=== PATIENT | female | born 1985 | race Caucasian/White ===

== ENCOUNTER 2022-03-13 13:41 | Emergency (ER) | payer BC, SELFPAY ==
[2022-03-13 14:11] VITALS: BP 137/86; PULSE 103; RESP 18; TEMP 36.3; O2SAT 96; BMI 19.8
--- NOTE | 2022-03-13 14:57 | ED.NAVMDI ---
HPI - Nausea/Vomiting/Diarrhea General Chief complaint: Nausea/Vomiting Stated complaint: Vomiting Time Seen by Provider: 03/13/22 14:40 History of Present Illness HPI Narrative: This 36-year-old female comes in with persistent vomiting with some diarrhea over the past couple days. This became significantly worse last evening. She states that she vomits within a minute or so after taking any kind of liquids. She has diffuse abdominal pain. She also fell 2 or 3 days ago onto her left side. She did hit her head also but does not report any loss of consciousness. She does not have any neurologic deficits but does report a headache. Related Data Home Medications Medication Instructions Recorded Confirmed citalopram 20 mg tablet mg 03/13/22 methylphenidate HCl 36 mg mg PO 03/13/22 tablet,extended release 24 hr tizanidine 4 mg tablet mg 03/13/22 Previous Rx's Medication Instructions Recorded ketorolac 10 mg tablet 10 mg PO TID 5 Days #15 tab 03/13/22 ondansetron HCl 4 mg tablet 4 mg PO Q6H #20 tab 03/13/22 pantoprazole 20 mg tablet,delayed 20 mg PO DAILY #20 tab 03/13/22 release (Protonix) Allergies Allergy/AdvReac Type Severity Reaction Status Date / Time No Known Drug Allergies Allergy Verified 03/13/22 14:10 Review of Systems Status of ROS: Reports: 10 or more systems reviewed and unremarkable except as noted in History and below Narrative: Constitutional: No fevers, no weight gain or loss. Eyes: No discharge. No vision changes. HENT: No congestion, no sore throat, no ear pain. Cardiovascular: No chest pain, no palpitations. Respiratory: No shortness of breath, no wheezes, no cough. Gastrointestinal: Diffuse abdominal pain that sometimes radiates up into her chest. Vomiting and diarrhea with nausea. Genitourinary: No dysuria, no hematuria. Musculoskeletal: Normal range of motion. Skin: No rashes, no pruritis. Neurological: No dizziness, weakness, sensory change, speech change. Endo/Heme/Allergies: No bruising or bleeding. No polydipsia. Pysch: no suicidality, no anxiety, no insomnia. All other systems reviewed and are negative. PFSH PFSH Social History Smoking Status: Current every day smoker What tobacco products do you use: cigarettes Smoking packs per day: 0.3 Smoking cigarettes per day: 6.0 Years smoked: 16 Smoking pack-years: 4.80 Do you use any of these nicotine containing products: None Second hand tobacco smoke exposure: No How often do you have a drink containing alcohol: 4 or more times a week How many standard drinks containing alcohol do you have on a typical day: 1 or 2 How often do you have six or more drinks on one occasion: Weekly AUDIT-C Alcohol total score: 7 Non-prescribed substance use: marijuana (any form) Non-prescribed substance use details: [facility] service: No Exam Narrative: Exam Narrative: Constitutional: Well-developed, well-nourished, no acute distress. HEENT: Normocephalic, atraumatic. Neck: Normal range of motion. Nontender. Supple. Heart: Regular. No murmurs. Normal rate. Intact distal pulses. Lungs: Clear to auscultation. No chest discomfort. No wheezes, rhonchi, or rales. Abdomen: Normal bowel sounds. Diffuse tenderness on the left side and upper abdomen. No obvious rebound tenderness. Genitalia: Deferred. Back: No midline tenderness. Normal range of motion. Extremities: Normal range of motion. No injury. Skin: Intact. No rash. Warm. No erythema or pallor. Neurologic: No altered sensation. No weakness. Alert and oriented. Psychiatric: No suicidality. No anxiety or depression. No insomnia. Nursing notes and vitals signs are reviewed. Const: Vital Signs, click to edit/add: Vital Signs - 24 hr 03/13/22 14:11 03/13/22 16:10 03/13/22 16:59 Temperature 97.3 F L Pulse Rate [Right Pulse Oximeter] 103 H 78 86 Respiratory Rate 18 18 Blood Pressure [Ri ght Upper Arm] 137/86 119/79 114/68 Pulse Oximetry 96 100 100 Course Vital Signs Vital signs: Initial Vital Signs Temperature 97.3 F L 03/13/22 14:11 Temperature Source Temporal Artery Scan 03/13/22 14:11 Pulse Rate 103 H 03/13/22 14:11 Respiratory Rate 18 03/13/22 14:11 Blood Pressure 137/86 03/13/22 14:11 Blood Pressure Mean 103 03/13/22 14:11 Blood Pressure Position Sitting 03/13/22 14:11 Pulse Oximetry 96 03/13/22 14:11 Oxygen Delivery Method 03/13/22 14:11 Vital Signs Temperature 97.3 F L 03/13/22 14:11 Pulse Rate 103 H 03/13/22 14:11 Respiratory Rate 18 03/13/22 14:11 Blood Pressure 137/86 03/13/22 14:11 Pulse Oximetry 96 03/13/22 14:11 Temperature 97.3 F L 03/13/22 14:11 Pulse Rate 86 03/13/22 16:59 Respiratory Rate 18 03/13/22 16:59 Blood Pressure 114/68 03/13/22 16:59 Pulse Oximetry 100 03/13/22 16:59 MDM - Nausea/Vomiting/Diarrhea MDM Narrative Medical decision making narrative: This patient comes in with upper epigastric and left-sided abdominal pain with nausea, vomiting, and diarrhea. She also reports some pain in the left side of her head and on her ear. She indicates that she fell and has a history of falling. Most of this is related to overuse of alcohol. She states that she was drinking heavily over the last month but not so in the last several days. An IV was established where she received a L of normal saline, 4 mg of Zofran, and 30 mg of Toradol. This brought some relief to her symptoms. Later she received a GI cocktail and another dose of Zofran. Meanwhile her lab results returned with mostly reassuring findings. Her liver enzymes are slightly elevated. She is not showing sign of infection. She does not have symptoms typical of an acute abdomen. Her lipase level is in normal range. She does feel better with these treatments and feels okay to return home. She did received prescriptions for Zofran, Toradol, and Protonix. Lab Data Labs: Lab Results 03/13/22 03/13/22 Range/Units 15:05 15:05 WBC 6.66 (4.50-11.00) K/uL RBC 3.87 L (4.00-5.20) m/uL Hgb 14.2 (12.0-16.0) gm/dL Hct 41.2 (33.0-51.0) % MCV 107 H (80-100) fL MCH 37 H (26-34) pg MCHC 35 (32-36) gm/dL RDW Coeff of [place] 13.8 (11.5-15.5) % Plt Count 288 (140-440) K/uL Neut % (Auto) 68.3 (42.0-72.0) % Lymph % (Auto) 21.8 (20-44) % [place] % (Auto) 8.9 (0.0-11.0) % Eos % (Auto) 0.2 (0.0-7.0) % Baso % (Auto) 0.6 (0.0-3.0) % Neut # (Auto) 4.56 (1.7-7.0) K/uL Lymph # (Auto) 1.45 (0.90-2.90) K/uL [place] # (Auto) 0.60 (0.00-0.90) K/UL Eos # (Auto) 0.01 (0.00-0.50) K/uL Baso # (Auto) 0.04 (0.00-0.30) K/uL Abs Immat Gran (auto) 0.01 (0.00-0.30) K/uL Sodium 139 (135-149) mmol/L Potassium 3.3 L (3.6-5.1) mmol/L Chloride 99 (96-114) mmol/L Carbon Dioxide 21 (20-32) mmol/L BUN 2 L (5-24) mg/dL Creatinine 0.5 (0.5-1.5) mg/dL Estimated Creat Clear 157.43 Glucose 94 (60-115) mg/dL Calcium 9.4 (8.4-10.6) mg/dL Total Bilirubin 1.7 H (0.1-1.5) mg/dL Direct Bilirubin 0.7 H (0.0-0.5) mg/dL AST 56 H (12-35) U/L ALT 37 H (4-35) U/L Alkaline Phosphatase 100 (40-150) U/L Total Protein 8.0 (6.0-8.3) g/dL Albumin 5.2 H (3.3-5.0) g/dL Lipase 205 (23-300) U/L Discharge Plan Discharge Clinical Impression: Gastroenteritis Condition: Stable Instructions: Gastroenteritis (ED) Additional Instructions: Take medication as prescribed and needed. Follow up with MD or return if recurrent or worsening symptoms happen. Prescriptions: New ondansetron HCl 4 mg tablet 4 mg PO Q6H Qty: 20 0RF ketorolac 10 mg tablet 10 mg PO TID 5 Days Qty: 15 0RF pantoprazole [Protonix] 20 mg tablet,delayed release (DR/EC) 20 mg PO DAILY Qty: 20 2RF No Action tizanidine 4 mg tablet 0RF citalopram 20 mg tablet 0RF methylphenidate HCl 36 mg tablet extended release 24hr PO 0RF Follow Up/Referrals: Liliya Argueta DO [Primary Care Provider] - Stand Alone Forms: [facility] Info Instructions Procedures Ultrasound Other exam #1: Anatomical areas examined: Upper abdomen Indications: Pain, vomiting. Exam type: focused emergency ultrasound Description/findings: Normal appearing kidneys, liver, aorta, gallbladder. Impression: No acute findings.
[2022-03-13] MEDS: 0.9 % SODIUM CHLORIDE 1000 ml 1,000 ML IV (15:07)
[2022-03-13] MEDS: KETOROLAC 30 MG/ML inj IVP (15:13)
[2022-03-13] MEDS: ONDANSETRON 2 MG/ML inj 4 MG IVP ×2 (15:16→17:31)
[2022-03-13 15:31] LABS: Basophils Absolute Auto 0.04 K/uL (0.00-0.30); Basophils Percent Auto 0.6 % (0.0-3.0); Eosinophils Absolute Auto 0.01 K/uL (0.00-0.50); Eosinophils Percent Auto 0.2 % (0.0-7.0); Hematocrit 41.2 % (33.0-51.0); Hemoglobin* 14.2 gm/dL (12.0-16.0); Immature Granulocytes Abs Auto 0.01 K/uL (0.00-0.30); Lymphocytes Absolute Auto 1.45 K/uL (0.90-2.90); Lymphocytes Percent Auto 21.8 % (20-44); Mean Corpuscular HGB Conc 35 gm/dL (32-36); Mean Corpuscular Hemoglobin 37 pg (26-34); Mean Corpuscular Volume 107 fL (80-100); Monocytes Percent Auto 8.9 % (0.0-11.0); Neutrophils Absolute Auto 4.56 K/uL (1.7-7.0); Neutrophils Percent Auto 68.3 % (42.0-72.0); Platelet Count* 288 K/uL (140-440); RDW Coefficient of Variation % 13.8 % (11.5-15.5); Red Blood Count 3.87 m/uL (4.00-5.20); White Blood Count* 6.66 K/uL (4.50-11.00)
[2022-03-13 15:53] LABS: Slide Review Reflex No
[2022-03-13 16:10] VITALS: BP 119/79; PULSE 78; O2SAT 100
[2022-03-13 16:17] LABS: Albumin* 5.2 g/dL (3.3-5.0); Chloride* 99 mmol/L (96-114); Potassium* 3.3 mmol/L (3.6-5.1); Sodium* 139 mmol/L (135-149)
[2022-03-13 16:19] LABS: Creatinine* 0.5 mg/dL (0.5-1.5); Est. Creatinine Clearance* 157.43; Estimated Glomerular Filt Rate 125.36
[2022-03-13 16:20] LABS: Alanine Aminotransferase* 37 U/L (4-35); Alkaline Phosphatase* 100 U/L (40-150); Aspartate Amino Transferase* 56 U/L (12-35); Bilirubin Direct* 0.7 mg/dL (0.0-0.5); Bilirubin Total* 1.7 mg/dL (0.1-1.5); Blood Urea Nitrogen* 2 mg/dL (5-24); Calcium* 9.4 mg/dL (8.4-10.6); Carbon Dioxide* 21 mmol/L (20-32); Glucose* 94 mg/dL (60-115); Lipase* 205 U/L (23-300)
[2022-03-13] MEDS: GI COCKTAIL (VISC LIDO/ANTACID) 30 ML PO (16:55)
[2022-03-13 16:59] VITALS: BP 114/68; PULSE 86; RESP 18; O2SAT 100
--- NOTE | 2022-03-13 17:14 | ED.NURSE ---
dr blackburn aware that she has been having left ear pain. exam per dr blackburn.
== END 2022-03-13 17:46 | disposition home or self-care (01) ==
PROVIDERS: Emergency Provider Emergency Medicine Emergency Medical Services; PCP Family Medicine
DX: K52.9 Noninfective gastroenteritis and colitis, unspecified (principal)
CPT/HCPCS: 36415; 80048; 80076; 83690; 85025; 96374; 96375; 96376; 99284; 99285; A9270; J1885; J2405; J7030

== ENCOUNTER 2022-09-03 18:44 | Outpatient (CLI) | payer BC, SELFPAY | END 2022-09-03 18:45 | disposition home or self-care (01) | LOC: AMB 09-04 10:24 | PROVIDERS: PCP Family Medicine; Visit Provider Family Medicine | DX: F10.129 Alcohol abuse with intoxication, unspecified (principal) | CPT/HCPCS: A0425; A0429 ==

== ENCOUNTER 2022-09-03 19:20 | Emergency (ER) | payer BC, SELFPAY ==
[2022-09-03 19:30] VITALS: BP 121/78; PULSE 83; RESP 16; TEMP 36.6; O2SAT 99
--- NOTE | 2022-09-03 19:37 | ED_ITS ---
HPI - General Adult General Time Seen by Provider: 19:37 <Katie Alfaro MD - Last Filed: 09/11/22 13:17> Date Seen: 09/03/22 <Katie Alfaro MD - Last Filed: 09/11/22 13:17> Chief complaint: Alcohol/Intoxication <Katie Alfaro MD - Last Filed: 09/11/22 13:17> Stated complaint: ETOH <Katie Alfaro MD - Last Filed: 09/11/22 13:17> Time Seen by Provider: 09/03/22 19:36 <Katie Alfaro MD - Last Filed: 09/11/22 13:17> Source: patient, RN notes reviewed, old records reviewed and police <Katie Alfaro MD - Last Filed: 09/11/22 13:17> Mode of arrival: EMS <Katie Alfaro MD - Last Filed: 09/11/22 13:17> Limitations: no limitations <Katie Alfaro MD - Last Filed: 09/11/22 13:17> History of Present Illness HPI narrative: Ele is a very pleasant 37-year-old female with history of alcohol abuse who comes to the emergency room via EMS after her mother called 911 for worrisome statements. Patient notes that she had been sober for quite some time and has been participating in outpatient therapy at [facility]. In June of this year she started drinking because of increased responsibility with her mother and her mother's friends. She states that her mother broke her hand and there were numerous other elderly people in the area that needed assistance and she seemed to be the 1 who always had to help. She states that she does not drink every day but when she does she goes on ?Benders?. She notes that her drink of choice is vodka. She notes that in the past she has gotten high as a 0.48 but states that tonight she is only a 0.22. She notes that she was frustrated tonight and her mother would not leave her alone. Out of frustration she states ?I just Wanna ? but she is adamant that she does not mean it and just wanted her mom to leave her alone. She states that she is not suicidal and never has been and does not want to . She states that she does not want to go to detox when I offer. She notes that she has a friend and neighbors place that she can go to if she decides not to go back home. Patient notes no recent trauma. She states that she has gone through withdrawal many times in this will likely include feeling sick as well as having diarrhea. She is requesting an Ativan 0.5 mg right now. I think this is reasonable. <Katie Alfaro MD - Last Filed: 09/11/22 13:17> Related Data Home medications: Home Medications Medication Instructions Recorded Confirmed citalopram 20 mg tablet mg 03/13/22 methylphenidate HCl 36 mg mg PO 03/13/22 tablet,extended release 24 hr tizanidine 4 mg tablet mg 03/13/22 Previous Rx's Medication Instructions Recorded ketorolac 10 mg tablet 10 mg PO TID 5 days #15 tabs 03/13/22 ondansetron HCl 4 mg tablet 4 mg PO Q6H #20 tabs 03/13/22 pantoprazole 20 mg tablet,delayed 20 mg PO DAILY #20 tabs 03/13/22 release (Protonix) <Katie Alfaro MD - Last Filed: 09/11/22 13:17> Allergies/adverse reactions: Allergies Allergy/AdvReac Type Severity Reaction Status Date / Time No Known Drug Allergies Allergy Verified 03/13/22 14:10 <Katie Alfaro MD - Last Filed: 09/11/22 13:17> Review of Systems Status of ROS: Reports: 6 or more systems reviewed and unremarkable except as noted in History and below <Katie Alfaro MD - Last Filed: 09/11/22 13:17> Const: Denies: fever or chills <Katie Alfaro MD - Last Filed: 09/11/22 13:17> Eyes: Denies: change in vision <Katie Alfaro MD - Last Filed: 09/11/22 13:17> ENMT: Denies: hoarseness <Katie Alfaro MD - Last Filed: 09/11/22 13:17> Cardio: Denies: chest pain, swelling of feet/ankles or shortness of breath with exertion <Katie Alfaro MD - Last Filed: 09/11/22 13:17> Resp: Denies: shortness of breath or cough <Katie Alfaro MD - Last Filed: 09/11/22 13:17> GI: Denies: abdominal pain, nausea, vomiting or diarrhea <Katie Alfaro MD - Last Filed: 09/11/22 13:17> : Denies: painful urination <Katie Alfaro MD - Last Filed: 09/11/22 13:17> Neuro: Reports: slurred speech; Denies: headache <Katie Alfaro MD - Last Filed: 09/11/22 13:17> Psych: Denies: anxiety, hopelessness, loss of interest or suicidal ideation <Katie Alfaro MD - Last Filed: 09/11/22 13:17> [facility] Social History: Social History Smoking Status: Current every day smoker What tobacco products do you use: cigarettes Smoking packs per day: 0.3 Smoking cigarettes per day: 6.0 Years smoked: 16 Smoking pack-years: 4.80 Do you use any of these nicotine containing products: None Second hand tobacco smoke exposure: No How often do you have a drink containing alcohol: 4 or more times a week How many standard drinks containing alcohol do you have on a typical day: 1 or 2 How often do you have six or more drinks on one occasion: Weekly AUDIT-C Alcohol total score: 7 Non-prescribed substance use: marijuana (any form) Non-prescribed substance use details: [facility] service: No <Katie Alfaro MD - Last Filed: 09/11/22 13:17> Exam Narrative: Exam Narrative: Patient is awake and oriented. Her speech is somewhat slurred but content is appropriate. Eyes are clear and EOM is full. Pupils slightly sluggishly reactive to light. Head is atraumatic normocephalic. Face is symmetrical. Neck is supple. Heart with regular rate and rhythm and lungs are clear. Abdomen soft nontender. Moving all extremities. Lower extremities without edema. No evidence of trauma. <Katie Alfaro MD - Last Filed: 09/11/22 13:17> Const: Vital Signs, click to edit/add: Vital Signs - 24 hr 09/03/22 19:30 Temperature 97.9 F Pulse Rate [Right Pulse Oximeter] 83 Respiratory Rate 16 Blood Pressure [Ri ght Upper Arm] 121/78 Pulse Oximetry 99 Oxygen Delivery Me thod Room Air <Katie Alfaro MD - Last Filed: 09/11/22 13:17> Vital Signs, click to edit/add: Vital Signs - 24 hr 09/03/22 19:30 Temperature 97.9 F Pulse Rate [Right Pulse Oximeter] 83 Respiratory Rate 16 Blood Pressure [Ri ght Upper Arm] 121/78 Pulse Oximetry 99 Oxygen Delivery Me thod Room Air <Joao Munroe MD - Last Filed: 09/04/22 07:16> Documenting provider has reviewed patient's vital signs: yes <Katie Alfaro MD - Last Filed: 09/11/22 13:17> Course Course Hospital Course: Patient brought in by EMS after making a potential suicide statement. After speaking with the patient I do not think that suicide with her intent but she merely was frustrated. She adamantly denies wanting to or kill herself. She does agreed however to speak to our [employer] retail service merchandiser. She also agrees to blood draw in fluids. <Katie Alfaro MD - Last Filed: 09/11/22 13:17> Vital Signs Vital signs: Initial Vital Signs Temperature 97.9 F 09/03/22 19:30 Temperature Source Temporal Artery Scan 09/03/22 19:30 Pulse Rate 83 09/03/22 19:30 Pulse Rhythm 09/03/22 19:30 Respiratory Rate 16 09/03/22 19:30 Blood Pressure 121/78 09/03/22 19:30 Blood Pressure Mean 92 09/03/22 19:30 Blood Pressure Position Semi-Fowlers 09/03/22 19:30 Pulse Oximetry 99 09/03/22 19:30 Oxygen Delivery Method 09/03/22 19:30 Vital Signs Temperature 97.9 F 09/03/22 19:30 Pulse Rate 83 09/03/22 19:30 Respiratory Rate 16 09/03/22 19:30 Blood Pressure 121/78 09/03/22 19:30 Pulse Oximetry 99 09/03/22 19:30 Oxygen Delivery Method 09/03/22 19:30 Temperature 97.0 F L 09/04/22 07:00 Pulse Rate 85 09/04/22 07:00 Respiratory Rate 18 09/04/22 07:00 Blood Pressure 113/74 09/04/22 07:00 Pulse Oximetry 97 09/04/22 07:00 Oxygen Delivery Method 09/04/22 07:00 <Katie Alfaro MD - Last Filed: 09/11/22 13:17> Initial Vital Signs Temperature 97.9 F 09/03/22 19:30 Temperature Source Temporal Artery Scan 09/03/22 19:30 Pulse Rate 83 09/03/22 19:30 Pulse Rhythm 09/03/22 19:30 Respiratory Rate 16 09/03/22 19:30 Blood Pressure 121/78 09/03/22 19:30 Blood Pressure Mean 92 09/03/22 19:30 Blood Pressure Position Semi-Fowlers 09/03/22 19:30 Pulse Oximetry 99 09/03/22 19:30 Oxygen Delivery Method 09/03/22 19:30 Vital Signs Temperature 97.9 F 09/03/22 19:30 Pulse Rate 83 09/03/22 19:30 Respiratory Rate 16 09/03/22 19:30 Blood Pressure 121/78 09/03/22 19:30 Pulse Oximetry 99 09/03/22 19:30 Oxygen Delivery Method 09/03/22 19:30 Temperature 97.0 F L 09/04/22 07:00 Pulse Rate 85 09/04/22 07:00 Respiratory Rate 18 09/04/22 07:00 Blood Pressure 113/74 09/04/22 07:00 Pulse Oximetry 97 09/04/22 07:00 Oxygen Delivery Method 09/04/22 07:00 <Joao Munroe MD - Last Filed: 09/04/22 07:16> Medical Decision Making MDM Narrative Medical decision making narrative: 1. Suicidal statement-it is my belief that this was set out of frustration in that patient does not have true suicidal ideation or it is an immediate threat to self. Ongoing assessment by our [facility]. 2. Alcohol intoxication-blood ETOH pending but on scene 0.229. Patient is given 1 L of normal saline in total and Zofran 4 mg. Patient will receive multivitamin, folic acid, thiamine. Patient declines detox at this time and will follow-up with her outpatient therapy with that which she already has. 3. Disposition-case will be signed out to my partner Dr. Munroe for final disposition. I received Ms. Pompa at changeOf shift. SheRameshs receivedTreatment as delineated above.Blood alcoholLevel here 0.32. I spoke with [employer] impact retail service merchandiser Queenie also Cory and her friend Who emphasized stressful nature ofMom andThat relationship.Ms. Pompa, with regardTo statementsMade tonight, would notBeConsidered threatTo herselfOrAnyoneElse At this time.IDid speak withHer as well.Appears to be cognating normally, speaking fluidly.Is contactingA friend for a ride. - <Katie Alfaro MD - Last Filed: 09/11/22 13:17> 1. Suicidal statement-it is my belief that this was set out of frustration in that patient does not have true suicidal ideation or it is an immediate threat to self. Ongoing assessment by our [employer] health. 2. Alcohol intoxication-blood ETOH pending but on scene 0.229. Patient is given 1 L of normal saline in total and Zofran 4 mg. Patient will receive multivitamin, folic acid, thigh min. Patient declines detox at this time and will follow-up with her outpatient therapy with that which she already has. 3. Disposition-case will be signed out to my partner Dr. Munroe for final di sposition. I received Ms. Pompa at changeOf shift. Brianna receivedTreatment as delineated above.Blood alcoholLevel here 0.32. I spoke with [employer] retail service merchandiser Queenie also Cory and her friend Who emphasized stressful nature ofMom andThat relationship.Ms. Pompa, with regardTo statementsMade tonight, would notBeConsidered threatTo herselfOrAnyoneElse At this time.IDid speak withHer as well.Appears to be cognating normally, speaking fluidly.Is contactingA friend for a ride. -dr <Joao Munroe MD - Last Filed: 09/04/22 07:16> Medical Records Medical records reviewed: Yes I reviewed the patient's medical records <Katie Alfaro MD - Last Filed: 09/11/22 13:17> Lab Data Labs: Lab Results 09/03/22 09/03/22 09/04/22 Range/Units 20:12 20:12 07:00 WBC 6.03 (4.50-11.00) K/uL RBC 3.49 L (4.00-5.20) m/uL Hgb 12.7 (12.0-16.0) gm/dL Hct 36.7 (33.0-51.0) % MCV 105 H (80-100) fL MCH 36 H (26-34) pg MCHC 35 (32-36) gm/dL RDW Coeff of Celso 12.8 (11.5-15.5) % Plt Count 242 (140-440) K/uL Neut % (Auto) 40.8 L (42.0-72.0) % Lymph % (Auto) 49.3 H (20-44) % [place] % (Auto) 8.8 (0.0-11.0) % Eos % (Auto) 0.8 (0.0-7.0) % Baso % (Auto) 0.3 (0.0-3.0) % Neut # (Auto) 2.50 (1.7-7.0) K/uL Lymph # (Auto) 3.00 H (0.90-2.90) K/uL [place] # (Auto) 0.50 (0.00-0.90) K/UL Eos # (Auto) 0.05 (0.00-0.50) K/uL Baso # (Auto) 0.02 (0.00-0.30) K/uL Sodium 146 (135-149) mmol/L Potassium 3.6 (3.6-5.1) mmol/L Chloride 110 (96-114) mmol/L Carbon Dioxide 22 (20-32) mmol/L BUN 12 (5-24) mg/dL Creatinine 0.7 (0.5-1.5) mg/dL Estimated GFR 115 ml/min Glucose 132 H (60-115) mg/dL Calcium 8.1 L (8.4-10.6) mg/dL Magnesium 1.7 (1.5-2.6) mg/dL Total Bilirubin 0.5 (0.1-1.5) mg/dL AST 32 (12-35) U/L ALT 27 (4-35) U/L Alkaline Phosphatase 54 (40-150) U/L Total Protein 6.7 (6.0-8.3) g/dL Albumin 4.3 (3.3-5.0) g/dL Urine Color Yellow (Yellow) Urine Appearance Slightly Cloudy A (Clear) Urine pH 6.0 (5.0-8.5) Ur Specific [place] >= 1.030 (1.000-1.030) Urine Protein Negative (Negative) Urine Glucose (UA) Negative (Negative) Urine Ketones 2+ A (Negative) Urine Blood Trace-intact A (Negative) Urine Nitrite Negative (Negative) Urine Bilirubin Negative (Negative) Urine Urobilinogen 0.2 (0.2-1.0) Ur Leukocyte Esterase Negative (Negative) Urine RBC 0-2 (0-2) Urine WBC 0-2 (0-5) Ur Squamous Epith Cells Few (None-Few) Amorphous Sediment Few A (None) Urine Bacteria Few A (None) Fine Granular Casts Few A (None) Urine Opiates Screen (Negative) Ur Oxycodone Screen (Negative) Urine Methadone Screen (Negative) Ur Propoxyphene Screen (Negative) Ur Barbiturates Screen (Negative) U Tricyclic Antidepress (Negative) Ur Phencyclidine Scrn (Negative) Ur Amphetamines Screen (Negative) U Methamphetamines Scrn (Negative) U Benzodiazepines Scrn (Negative) Urine Cocaine Screen (Negative) U Marijuana (THC) Screen (Negative) Ur Drug Screen Comment Ethyl Alcohol 0.32 H* (0.01-0.03) % 09/04/22 Range/Units 07:00 WBC (4.50-11.00) K/uL RBC (4.00-5.20) m/uL Hgb (12.0-16.0) gm/dL Hct (33.0-51.0) % MCV (80-100) fL MCH (26-34) pg MCHC (32-36) gm/dL RDW Coeff of Celso (11.5-15.5) % Plt Count (140-440) K/uL Neut % (Auto) (42.0-72.0) % Lymph % (Auto) (20-44) % [place] % (Auto) (0.0-11.0) % Eos % (Auto) (0.0-7.0) % Baso % (Auto) (0.0-3.0) % Neut # (Auto) (1.7-7.0) K/uL Lymph # (Auto) (0.90-2.90) K/uL [place] # (Auto) (0.00-0.90) K/UL Eos # (Auto) (0.00-0.50) K/uL Baso # (Auto) (0.00-0.30) K/uL Sodium (135-149) mmol/L Potassium (3.6-5.1) mmol/L Chloride (96-114) mmol/L Carbon Dioxide (20-32) mmol/L BUN (5-24) mg/dL Creatinine (0.5-1.5) mg/dL Estimated GFR ml/min Glucose (60-115) mg/dL Calcium (8.4-10.6) mg/dL Magnesium (1.5-2.6) mg/dL Total Bilirubin (0.1-1.5) mg/dL AST (12-35) U/L ALT (4-35) U/L Alkaline Phosphatase (40-150) U/L Total Protein (6.0-8.3) g/dL Albumin (3.3-5.0) g/dL Urine Color (Yellow) Urine Appearance (Clear) Urine pH (5.0-8.5) Ur Specific [place] (1.000-1.030) Urine Protein (Negative) Urine Glucose (UA) (Negative) Urine Ketones (Negative) Urine Blood (Negative) Urine Nitrite (Negative) Urine Bilirubin (Negative) Urine Urobilinogen (0.2-1.0) Ur Leukocyte Esterase (Negative) Urine RBC (0-2) Urine WBC (0-5) Ur Squamous Epith Cells (None-Few) Amorphous Sediment (None) Urine Bacteria (None) Fine Granular Casts (None) Urine Opiates Screen Negative (Negative) Ur Oxycodone Screen Negative (Negative) Urine Methadone Screen Negative (Negative) Ur Propoxyphene Screen Negative (Negative) Ur Barbiturates Screen Negative (Negative) U Tricyclic Antidepress Negative (Negative) Ur Phencyclidine Scrn Negative (Negative) Ur Amphetamines Screen Negative (Negative) U Methamphetamines Scrn Negative (Negative) U Benzodiazepines Scrn Negative (Negative) Urine Cocaine Screen Negative (Negative) U Marijuana (THC) Screen Negative (Negative) Ur Drug Screen Comment See Note Ethyl Alcohol (0.01-0.03) % <Katie Alfaro MD - Last Filed: 09/11/22 13:17> Lab Results 09/03/22 09/03/22 09/04/22 Range/Units 20:12 20:12 07:00 WBC 6.03 (4.50-11.00) K/uL RBC 3.49 L (4.00-5.20) m/uL Hgb 12.7 (12.0-16.0) gm/dL Hct 36.7 (33.0-51.0) % MCV 105 H (80-100) fL MCH 36 H (26-34) pg MCHC 35 (32-36) gm/dL RDW Coeff of Celso 12.8 (11.5-15.5) % Plt Count 242 (140-440) K/uL Neut % (Auto) 40.8 L (42.0-72.0) % Lymph % (Auto) 49.3 H (20-44) % [place] % (Auto) 8.8 (0.0-11.0) % Eos % (Auto) 0.8 (0.0-7.0) % Baso % (Auto) 0.3 (0.0-3.0) % Neut # (Auto) 2.50 (1.7-7.0) K/uL Lymph # (Auto) 3.00 H (0.90-2.90) K/uL [place] # (Auto) 0.50 (0.00-0.90) K/UL Eos # (Auto) 0.05 (0.00-0.50) K/uL Baso # (Auto) 0.02 (0.00-0.30) K/uL Sodium 146 (135-149) mmol/L Potassium 3.6 (3.6-5.1) mmol/L Chloride 110 (96-114) mmol/L Carbon Dioxide 22 (20-32) mmol/L BUN 12 (5-24) mg/dL Creatinine 0.7 (0.5-1.5) mg/dL Estimated GFR 115 ml/min Glucose 132 H (60-115) mg/dL Calcium 8.1 L (8.4-10.6) mg/dL Magnesium 1.7 (1.5-2.6) mg/dL Total Bilirubin 0.5 (0.1-1.5) mg/dL AST 32 (12-35) U/L ALT 27 (4-35) U/L Alkaline Phosphatase 54 (40-150) U/L Total Protein 6.7 (6.0-8.3) g/dL Albumin 4.3 (3.3-5.0) g/dL Urine Color Yellow (Yellow) Urine Appearance Slightly Cloudy A (Clear) Urine pH 6.0 (5.0-8.5) Ur Specific [place] >= 1.030 (1.000-1.030) Urine Protein Negative (Negative) Urine Glucose (UA) Negative (Negative) Urine Ketones 2+ A (Negative) Urine Blood Trace-intact A (Negative) Urine Nitrite Negative (Negative) Urine Bilirubin Negative (Negative) Urine Urobilinogen 0.2 (0.2-1.0) Ur Leukocyte Esterase Negative (Negative) Urine RBC 0-2 (0-2) Urine WBC 0-2 (0-5) Ur Squamous Epith Cells Few (None-Few) Amorphous Sediment Few A (None) Urine Bacteria Few A (None) Fine Granular Casts Few A (None) Urine Opiates Screen (Negative) Ur Oxycodone Screen (Negative) Urine Methadone Screen (Negative) Ur Propoxyphene Screen (Negative) Ur Barbiturates Screen (Negative) U Tricyclic Antidepress (Negative) Ur Phencyclidine Scrn (Negative) Ur Amphetamines Screen (Negative) U Methamphetamines Scrn (Negative) U Benzodiazepines Scrn (Negative) Urine Cocaine Screen (Negative) U Marijuana (THC) Screen (Negative) Ur Drug Screen Comment Ethyl Alcohol 0.32 H* (0.01-0.03) % 09/04/22 Range/Units 07:00 WBC (4.50-11.00) K/uL RBC (4.00-5.20) m/uL Hgb (12.0-16.0) gm/dL Hct (33.0-51.0) % MCV (80-100) fL MCH (26-34) pg MCHC (32-36) gm/dL RDW Coeff of Celso (11.5-15.5) % Plt Count (140-440) K/uL Neut % (Auto) (42.0-72.0) % Lymph % (Auto) (20-44) % [place] % (Auto) (0.0-11.0) % Eos % (Auto) (0.0-7.0) % Baso % (Auto) (0.0-3.0) % Neut # (Auto) (1.7-7.0) K/uL Lymph # (Auto) (0.90-2.90) K/uL [place] # (Auto) (0.00-0.90) K/UL Eos # (Auto) (0.00-0.50) K/uL Baso # (Auto) (0.00-0.30) K/uL Sodium (135-149) mmol/L Potassium (3.6-5.1) mmol/L Chloride (96-114) mmol/L Carbon Dioxide (20-32) mmol/L BUN (5-24) mg/dL Creatinine (0.5-1.5) mg/dL Estimated GFR ml/min Glucose (60-115) mg/dL Calcium (8.4-10.6) mg/dL Magnesium (1.5-2.6) mg/dL Total Bilirubin (0.1-1.5) mg/dL AST (12-35) U/L ALT (4-35) U/L Alkaline Phosphatase (40-150) U/L Total Protein (6.0-8.3) g/dL Albumin (3.3-5.0) g/dL Urine Color (Yellow) Urine Appearance (Clear) Urine pH (5.0-8.5) Ur Specific [place] (1.000-1.030) Urine Protein (Negative) Urine Glucose (UA) (Negative) Urine Ketones (Negative) Urine Blood (Negative) Urine Nitrite (Negative) Urine Bilirubin (Negative) Urine Urobilinogen (0.2-1.0) Ur Leukocyte Esterase (Negative) Urine RBC (0-2) Urine WBC (0-5) Ur Squamous Epith Cells (None-Few) Amorphous Sediment (None) Urine Bacteria (None) Fine Granular Casts (None) Urine Opiates Screen Negative (Negative) Ur Oxycodone Screen Negative (Negative) Urine Methadone Screen Negative (Negative) Ur Propoxyphene Screen Negative (Negative) Ur Barbiturates Screen Negative (Negative) U Tricyclic Antidepress Negative (Negative) Ur Phencyclidine Scrn Negative (Negative) Ur Amphetamines Screen Negative (Negative) U Methamphetamines Scrn Negative (Negative) U Benzodiazepines Scrn Negative (Negative) Urine Cocaine Screen Negative (Negative) U Marijuana (THC) Screen Negative (Negative) Ur Drug Screen Comment See Note Ethyl Alcohol (0.01-0.03) % <Joao Munroe MD - Last Filed: 09/04/22 07:16> Discharge Plan Discharge Clinical Impression: Alcohol intoxication, Other social stressor <Katie Alfaro MD - Last Filed: 09/11/22 13:17> Patient Disposition: Home, Self-Care <Katie Alfaro MD - Last Filed: 09/11/22 13:17> Condition: Improved <Katie Alfaro MD - Last Filed: 09/11/22 13:17> Additional Instructions: Recommend discontinuing drinking. Please follow-up with your [facility] counselors. Return to the emergency room as needed especially for depression, suicidal thoughts, worsening symptoms. <Katie Alfaro MD - Last Filed: 09/11/22 13:17> Prescriptions: No Action tizanidine 4 mg tablet citalopram 20 mg tablet methylphenidate HCl 36 mg tablet extended release 24hr PO ondansetron HCl 4 mg tablet 4 mg PO Q6H Qty: 20 0RF ketorolac 10 mg tablet 10 mg PO TID 5 Days Qty: 15 0RF pantoprazole [Protonix] 20 mg tablet,delayed release (DR/EC) 20 mg PO DAILY Qty: 20 2RF <Katie Alfaro MD - Last Filed: 09/11/22 13:17> Follow Up/Referrals: Liliya Argueta DO [Primary Care Provider] - <Katie Alfaro MD - Last Filed: 09/11/22 13:17> Stand Alone Forms: MyHealth Info Instructions <Katie Alfaro MD - Last Filed: 09/11/22 13:17>
[2022-09-03] MEDS: ONDANSETRON 2 MG/ML inj 4 MG IVP (20:33)
[2022-09-03] MEDS: LORazepam 0.5 MG TABLET PO (20:33)
[2022-09-03] MEDS: 0.9 % SODIUM CHLORIDE 500 ML 500 ML IV (20:33)
[2022-09-03 20:45] LABS: Basophils Absolute Auto 0.02 K/uL (0.00-0.30); Basophils Percent Auto 0.3 % (0.0-3.0); Eosinophils Absolute Auto 0.05 K/uL (0.00-0.50); Eosinophils Percent Auto 0.8 % (0.0-7.0); Hematocrit 36.7 % (33.0-51.0); Hemoglobin* 12.7 gm/dL (12.0-16.0); Lymphocytes Percent Auto 49.3 % (20-44); Mean Corpuscular HGB Conc 35 gm/dL (32-36); Mean Corpuscular Hemoglobin 36 pg (26-34); Mean Corpuscular Volume 105 fL (80-100); Monocytes Percent Auto 8.8 % (0.0-11.0); Neutrophils Percent Auto 40.8 % (42.0-72.0); Platelet Count* 242 K/uL (140-440); RDW Coefficient of Variation % 12.8 % (11.5-15.5); Red Blood Count 3.49 m/uL (4.00-5.20); White Blood Count* 6.03 K/uL (4.50-11.00)
[2022-09-03 20:50] LABS: Slide Review Reflex No
[2022-09-03 20:57] LABS: Albumin* 4.3 g/dL (3.3-5.0)
[2022-09-03 20:58] LABS: Chloride* 110 mmol/L (96-114); Sodium* 146 mmol/L (135-149)
[2022-09-03 20:59] LABS: Potassium* 3.6 mmol/L (3.6-5.1)
[2022-09-03 21:00] LABS: Bilirubin Total* 0.5 mg/dL (0.1-1.5); Creatinine* 0.7 mg/dL (0.5-1.5); Estimated Glomerular Filt Rate 115 ml/min
[2022-09-03 21:01] LABS: Alanine Aminotransferase* 27 U/L (4-35); Alkaline Phosphatase* 54 U/L (40-150); Aspartate Amino Transferase* 32 U/L (12-35); Blood Urea Nitrogen* 12 mg/dL (5-24); Calcium* 8.1 mg/dL (8.4-10.6); Carbon Dioxide* 22 mmol/L (20-32); Glucose* 132 mg/dL (60-115); Total Protein* 6.7 g/dL (6.0-8.3)
[2022-09-03 21:02] LABS: Magnesium* 1.7 mg/dL (1.5-2.6)
[2022-09-03 21:22] LABS: Ethanol* 0.32 % (0.01-0.03)
[2022-09-03] MEDS: THIAMINE 100 MG TABLET PO (22:15)
--- NOTE | 2022-09-03 22:37 | ED.NURSE ---
SANTANA speaking to pt
[2022-09-04 07:00] VITALS: BP 113/74; PULSE 85; RESP 18; TEMP 36.1; O2SAT 97
[2022-09-04 07:22] LABS: Appearance Urine Slightly Cloudy (Clear); Bilirubin Urine Negative (Negative); Blood Urine Trace-intact (Negative); Color Urine Yellow (Yellow); Glucose Urine Negative (Negative); Ketones Urine 2+ (Negative); Leukocyte Esterase Urine Negative (Negative); Nitrite Urine Negative (Negative); Protein Urine Negative (Negative); Specific Gravity Urine >= 1.030 (1.000-1.030); Urobilinogen Urine 0.2 (0.2-1.0)
[2022-09-04] MEDS: IBUPROFEN 200 MG TABLET 800 MG PO (07:29)
[2022-09-04] MEDS: LORazepam 1 MG TABLET PO (07:29)
[2022-09-04] MEDS: FOLIC ACID 1 MG TABLET PO (07:29)
[2022-09-04] MEDS: MULTIVITAMIN/MINERALS 1 TABLET 1 TAB PO (07:29)
[2022-09-04 07:39] LABS: Amphetamine Screen Urine Negative (Negative); Barbiturate Screen Urine Negative (Negative); Benzodiazepines Screen Urine Negative (Negative); Cannabinoid Screen Urine Negative (Negative); Cocaine Screen Urine Negative (Negative); Methadone Screen Urine Negative (Negative); Methamphetamines Screen Urine Negative (Negative); Opiate Screen Urine Negative (Negative); Oxycodone Screen Urine Negative (Negative); Phencyclidine Screen Urine Negative (Negative); Tricyclic Antidepressant Urine Negative (Negative)
[2022-09-04 07:45] LABS: Amorphous Sediment Urine Few; Bacteria Urine Few; RBC Urine 0-2 (0-2); Squamous Epithelial Cell Urine Few (None-Few); WBC Urine 0-2 (0-5)
[2022-09-04 07:46] LABS: Fine Granular Casts Urine Few
--- NOTE | 2022-09-04 09:12 | ED.NURSE ---
social service came down to talk with patient and is making an appointment for housing then the mother will come and poultry picker the patient.
--- NOTE | 2022-09-04 09:31 | PC.SOCIAL ---
Met with pt. to give resources on housing assistance through the [facility]. Pt. has been living with her mother and her mother is kicking her out. Pt. plan to make an appointment to see someone at the [facility] before discharge so her mother will be willing to pick her up and let her stay with her awhile longer.
[2022-09-04] MEDS: FAMOTIDINE 20 MG TABLET PO (09:38)
--- NOTE | 2022-09-04 09:39 | ED.NURSE ---
patient is wanting a Pepcid for heartburn and stated the mother is coming to diamond picker in a half hour.
--- NOTE | 2022-09-04 10:40 | ED.NURSE ---
patient's mother is here to bean picker machine operator and take home. called the community action and made an appointment for some assistance.
== END 2022-09-04 10:40 | disposition home or self-care (01) ==
PROVIDERS: Emergency Provider Family Medicine; PCP Family Medicine
DX: F10.129 Alcohol abuse with intoxication, unspecified (principal); Y90.8 Blood alcohol level of 240 mg/100 ml or more; F43.9 Reaction to severe stress, unspecified
CPT/HCPCS: 36415; 80053; 80306; 81003; 81015; 82077; 83735; 85025; 87086; 96361; 96374; 99284; A9153; A9270; J2405; J7120

== ENCOUNTER 2022-10-08 08:38 | Outpatient (CLI) | payer BC, SELFPAY | END 2022-10-08 08:39 | disposition home or self-care (01) | PROVIDERS: PCP Family Medicine; Visit Provider Family Medicine | DX: M54.16 Radiculopathy, lumbar region (principal); M51.36 Other intervertebral disc degeneration, lumbar region | CPT/HCPCS: 62323; J0702; Q9966 ==

== ENCOUNTER 2022-11-07 13:55 | Emergency (ER) | payer BC, SELFPAY ==
[2022-11-07 14:02] VITALS: BP 116/73; PULSE 86; RESP 16; TEMP 37; O2SAT 98; BMI 19.8
[2022-11-07 14:27] LABS: Appearance Urine Clear (Clear); Bilirubin Urine Negative (Negative); Blood Urine Negative (Negative); Color Urine Yellow (Yellow); Glucose Urine Negative (Negative); Ketones Urine Negative (Negative); Leukocyte Esterase Urine Negative (Negative); Nitrite Urine Negative (Negative); Protein Urine Negative (Negative); Specific Gravity Urine 1.015 (1.000-1.030); Urobilinogen Urine 0.2 (0.2-1.0)
--- NOTE | 2022-11-07 14:33 | ED_ITS ---
HPI - Abdominal Pain General Chief Complaint: Abdominal Pain Stated Complaint: Lower back/Lower L Abdominal Pain Time Seen by Provider: 11/07/22 14:07 History of Present Illness HPI narrative: Pt is a 37 year old woman who comes in with RLQ and posterior CVA discomfort for the past 24 hours. She also has some mild dysuria. Pt has had no fevers, chills, night sweats, nausea or vomiting. Pt had been in her usual state of health with no other significant symptoms recently. Pt states the pain is mild and dull no other significant symptoms and no rash. Related Data Home Medications Medication Instructions Recorded Confirmed citalopram 20 mg tablet mg 03/13/22 methylphenidate HCl 36 mg mg PO 03/13/22 tablet,extended release 24 hr tizanidine 4 mg tablet mg 03/13/22 Previous Rx's Medication Instructions Recorded ketorolac 10 mg tablet 10 mg PO TID 5 days #15 tabs 03/13/22 ondansetron HCl 4 mg tablet 4 mg PO Q6H #20 tabs 03/13/22 pantoprazole 20 mg tablet,delayed 20 mg PO DAILY #20 tabs 03/13/22 release (Protonix) Allergies Allergy/AdvReac Type Severity Reaction Status Date / Time No Known Drug Allergies Allergy Verified 11/07/22 14:01 Review of Systems Status of ROS Reports: 10 or more systems reviewed and unremarkable except as noted in History and below [facility] Social History Smoking Status: Current every day smoker What tobacco products do you use: cigarettes Smoking packs per day: 0.3 Smoking cigarettes per day: 6.0 Years smoked: 16 Smoking pack-years: 4.80 Do you use any of these nicotine containing products: None Second hand tobacco smoke exposure: No How often do you have a drink containing alcohol: 4 or more times a week How many standard drinks containing alcohol do you have on a typical day: 1 or 2 How often do you have six or more drinks on one occasion: Weekly AUDIT-C Alcohol total score: 7 Non-prescribed substance use: marijuana (any form) Non-prescribed substance use details: [facility] service: No Exam Narrative: Exam Narrative: EXAM GENERAL: Patient appears comfortable and well. EYES: No scleral icterus. THYROID: no thyroid nodules or thyromegaly. LYMPH: No supraclavicular or cervical lymphadenopathy. SKIN: Visible skin seen during exam normal or with benign process only. EXT: No dependent lower extremity pedal edema. HEART: Regular rate and rhythm with no murmurs, rubs, or gallops. LUNGS: Clear to auscultation bilaterally with no crackles or wheezes. ABD: Soft, non tender, non distended. PSYCH: Good eye contact, speech is not pressured. Const: Vital Signs, click to edit/add: Vital Signs - 24 hr 11/07/22 14:02 Temperature 98.6 F Pulse Rate [Pulse Oximeter] 86 Respiratory Rate 16 Blood Pressure [Ri t Upper Arm] 116/73 Pulse Oximetry 98 Oxygen Delivery Me thod Room Air Course Course Hospital Course: Pt seen and examined. Urinalysis, CBC, CMP, Amylase and CT of abd and pelvis ordered. Reevaluation(s) Reevaluation #1: Labs reassuring. CT shows questionable colitis. Time: 15:51 Vital Signs Vital signs: Initial Vital Signs Temperature 98.6 F 11/07/22 14:02 Temperature Source Temporal Artery Scan 11/07/22 14:02 Pulse Rate 86 11/07/22 14:02 Pulse Rhythm 11/07/22 14:02 Pulse Strength 3+ Normal 11/07/22 14:02 Respiratory Rate 16 11/07/22 14:02 Blood Pressure 116/73 11/07/22 14:02 Blood Pressure Mean 87 11/07/22 14:02 Pulse Oximetry 98 11/07/22 14:02 Oxygen Delivery Method 11/07/22 14:02 Vital Signs Temperature 98.6 F 11/07/22 14:02 Pulse Rate 86 11/07/22 14:02 Respiratory Rate 16 11/07/22 14:02 Blood Pressure 116/73 11/07/22 14:02 Pulse Oximetry 98 11/07/22 14:02 Oxygen Delivery Method 11/07/22 14:02 Temperature 98.6 F 11/07/22 14:02 Pulse Rate 86 11/07/22 14:02 Respiratory Rate 16 11/07/22 14:02 Blood Pressure 116/73 11/07/22 14:02 Pulse Oximetry 98 11/07/22 14:02 Oxygen Delivery Method 11/07/22 14:02 MDM - Abdominal Pain MDM Narrative Medical decision making narrative: Pt presents with short term mild abd tenderness. Labs reassuring. Exam and vitals normal. Labs unrevealing. Pt's CT shows mild questionable bowel thickening. This likely represents short term viral irritation given lack of change in bowels or blood in stool will likely resolve with symptomatic care which is what is offered with PCP follow up. Medical Records Attestation: I reviewed the patient's medical records. Lab Data Labs: Lab Results 11/07/22 11/07/22 11/07/22 Range/Units 14:15 14:50 14:50 WBC 9.84 (4.50-11.00) K/uL RBC 3.90 L (4.00-5.20) m/uL Hgb 13.5 (12.0-16.0) gm/dL Hct 40.0 (33.0-51.0) % MCV 103 H (80-100) fL MCH 35 H (26-34) pg MCHC 34 (32-36) gm/dL RDW Coeff of Celso 11.6 (11.5-15.5) % Plt Count 242 (140-440) K/uL Neut % (Auto) 66.7 (42.0-72.0) % Lymph % (Auto) 24.7 (20-44) % [place] % (Auto) 7.2 (0.0-11.0) % Eos % (Auto) 0.8 (0.0-7.0) % Baso % (Auto) 0.5 (0.0-3.0) % Neut # (Auto) 6.56 (1.7-7.0) K/uL Lymph # (Auto) 2.43 (0.90-2.90) K/uL [place] # (Auto) 0.70 (0.00-0.90) K/UL Eos # (Auto) 0.08 (0.00-0.50) K/uL Baso # (Auto) 0.05 (0.00-0.30) K/uL Sodium (135-149) mmol/L Potassium (3.6-5.1) mmol/L Chloride (96-114) mmol/L Carbon Dioxide (20-32) mmol/L BUN (5-24) mg/dL Creatinine (0.5-1.5) mg/dL Estimated Creat Clear Estimated GFR ml/min Glucose (60-115) mg/dL Calcium (8.4-10.6) mg/dL Total Bilirubin (0.1-1.5) mg/dL AST (12-35) U/L ALT (4-35) U/L Alkaline Phosphatase (40-150) U/L Total Protein (6.0-8.3) g/dL Albumin (3.3-5.0) g/dL Amylase (18-89) U/L HCG, Qual Negative (Negative) Urine Color Yellow (Yellow) Urine Appearance Clear (Clear) Urine pH 7.0 (5.0-8.5) Ur Specific [place] 1.015 (1.000-1.030) Urine Protein Negative (Negative) Urine Glucose (UA) Negative (Negative) Urine Ketones Negative (Negative) Urine Blood Negative (Negative) Urine Nitrite Negative (Negative) Urine Bilirubin Negative (Negative) Urine Urobilinogen 0.2 (0.2-1.0) Ur Leukocyte Esterase Negative (Negative) 11/07/22 Range/Units 14:50 WBC (4.50-11.00) K/uL RBC (4.00-5.20) m/uL Hgb (12.0-16.0) gm/dL Hct (33.0-51.0) % MCV (80-100) fL MCH (26-34) pg MCHC (32-36) gm/dL RDW Coeff of Celso (11.5-15.5) % Plt Count (140-440) K/uL Neut % (Auto) (42.0-72.0) % Lymph % (Auto) (20-44) % [place] % (Auto) (0.0-11.0) % Eos % (Auto) (0.0-7.0) % Baso % (Auto) (0.0-3.0) % Neut # (Auto) (1.7-7.0) K/uL Lymph # (Auto) (0.90-2.90) K/uL [place] # (Auto) (0.00-0.90) K/UL Eos # (Auto) (0.00-0.50) K/uL Baso # (Auto) (0.00-0.30) K/uL Sodium 136 (135-149) mmol/L Potassium 4.3 (3.6-5.1) mmol/L Chloride 102 (96-114) mmol/L Carbon Dioxide 29 (20-32) mmol/L BUN 12 (5-24) mg/dL Creatinine 0.6 (0.5-1.5) mg/dL Estimated Creat Clear 129.95 Estimated GFR 119 ml/min Glucose 117 H (60-115) mg/dL Calcium 9.6 (8.4-10.6) mg/dL Total Bilirubin 0.7 (0.1-1.5) mg/dL AST 23 (12-35) U/L ALT 28 (4-35) U/L Alkaline Phosphatase 52 (40-150) U/L Total Protein 7.4 (6.0-8.3) g/dL Albumin 4.6 (3.3-5.0) g/dL Amylase 110 H (18-89) U/L HCG, Qual (Negative) Urine Color (Yellow) Urine Appearance (Clear) Urine pH (5.0-8.5) Ur Specific [place] (1.000-1.030) Urine Protein (Negative) Urine Glucose (UA) (Negative) Urine Ketones (Negative) Urine Blood (Negative) Urine Nitrite (Negative) Urine Bilirubin (Negative) Urine Urobilinogen (0.2-1.0) Ur Leukocyte Esterase (Negative) Discharge Plan Discharge Clinical Impression: Abdominal pain Condition: Stable Instructions: Abdominal Pain (ED) Additional Instructions: Tylenol Motrin Rest Fluids Follow up if symptoms worsen or new symptoms develop. Activity Level: No Restrictions Discharge Diet: Regular Prescriptions: No Action tizanidine 4 mg tablet citalopram 20 mg tablet methylphenidate HCl 36 mg tablet extended release 24hr PO ondansetron HCl 4 mg tablet 4 mg PO Q6H Qty: 20 0RF ketorolac 10 mg tablet 10 mg PO TID 5 Days Qty: 15 0RF pantoprazole [Protonix] 20 mg tablet,delayed release (DR/EC) 20 mg PO DAILY Qty: 20 2RF Follow Up/Referrals: Liliya Argueta DO [Primary Care Provider] - Stand Alone Forms: MyHealth Info Instructions
--- NOTE | 2022-11-07 14:37 | CRLHL7_ITS ---
For Patients: As a result of the Century Cures Act, medical imaging exams and procedure reports are released immediately into your electronic medical record. You may view this report before your referring provider. If you have questions, please contact your health care provider. Indication: Right lower quadrant pain. Technique: Volumetric multidetector CT images of the abdomen and pelvis were obtained after the administration of intravenous contrast. 69 cc Isovue 370 low osmolar intravenous contrast Comparison: None available. Findings: The lung bases are clear. The liver is normal in attenuation without intrahepatic biliary ductal dilatation. The portal vein is patent. The gallbladder is unremarkable without evidence of radiopaque calculus. There is no significant common biliary ductal dilatation or abrupt cut off. The spleen is normal in enhancement and size. The stomach and duodenum are grossly unremarkable. The pancreas is normal in enhancement without significant atrophy. The adrenal glands are unremarkable. The kidneys demonstrate preserved corticomedullary differentiation without evidence of obstructive uropathy. The colon is somewhat decompressed with questionable thickening of the transverse colon, descending and sigmoid colon with minimal distal colonic diverticulosis. There is a mildly low-lying appearance of the cecum. The appendix is unremarkable. There is no significant mesenteric, retroperitoneal, or pelvic sidewall lymph nodes. The aorta is nonaneurysmal. There is no significant atherosclerotic disease appreciated. There is an IUD in satisfactory position. There is no free fluid or free air. The anterior abdominal wall is intact without significant hernias. The lumbar vertebral body heights are grossly maintained in satisfactory alignment without evidence of displaced fracture, lytic or blastic lesion. Impression: Normal appendix. Questionable mild thickening of the transverse and descending colon with distal colonic diverticulosis which may represent colitis changes. No overt pericolonic inflammatory change is identified. No other acute intra-abdominal abnormalities are appreciated. Please note that all CT scans at this facility use dose modulation, iterative reconstruction, and/or weight-based dosing when appropriate to reduce radiation dose to as low as reasonably achievable. Dictated by Олег Casper MD @ 11/07/2022 3:43:10 PM (Electronically Signed)
[2022-11-07 15:02] LABS: HCG Qualitative* Negative (Negative)
[2022-11-07 15:18] LABS: Basophils Absolute Auto 0.05 K/uL (0.00-0.30); Basophils Percent Auto 0.5 % (0.0-3.0); Eosinophils Absolute Auto 0.08 K/uL (0.00-0.50); Eosinophils Percent Auto 0.8 % (0.0-7.0); Hemoglobin* 13.5 gm/dL (12.0-16.0); Immature Granulocytes Abs Auto 0.01 K/uL (0.00-0.30); Immature Granulocytes Pct Auto 0.1 %; Lymphocytes Absolute Auto 2.43 K/uL (0.90-2.90); Lymphocytes Percent Auto 24.7 % (20-44); Mean Corpuscular HGB Conc 34 gm/dL (32-36); Mean Corpuscular Hemoglobin 35 pg (26-34); Mean Corpuscular Volume 103 fL (80-100); Monocytes Percent Auto 7.2 % (0.0-11.0); Neutrophils Absolute Auto 6.56 K/uL (1.7-7.0); Neutrophils Percent Auto 66.7 % (42.0-72.0); Platelet Count* 242 K/uL (140-440); RDW Coefficient of Variation % 11.6 % (11.5-15.5); White Blood Count* 9.84 K/uL (4.50-11.00)
[2022-11-07 15:19] LABS: Albumin* 4.6 g/dL (3.3-5.0)
[2022-11-07 15:20] LABS: Chloride* 102 mmol/L (96-114); Sodium* 136 mmol/L (135-149)
[2022-11-07 15:22] LABS: Amylase* 110 U/L (18-89); Aspartate Amino Transferase* 23 U/L (12-35); Bilirubin Total* 0.7 mg/dL (0.1-1.5); Carbon Dioxide* 29 mmol/L (20-32); Creatinine* 0.6 mg/dL (0.5-1.5); Est. Creatinine Clearance* 129.95; Estimated Glomerular Filt Rate 119 ml/min; Total Protein* 7.4 g/dL (6.0-8.3)
[2022-11-07 15:23] LABS: Alanine Aminotransferase* 28 U/L (4-35); Alkaline Phosphatase* 52 U/L (40-150); Blood Urea Nitrogen* 12 mg/dL (5-24); Calcium* 9.6 mg/dL (8.4-10.6); Glucose* 117 mg/dL (60-115); Potassium* 4.3 mmol/L (3.6-5.1)
[2022-11-07 15:28] LABS: Slide Review Reflex No
== END 2022-11-07 16:03 | disposition home or self-care (01) ==
PROVIDERS: Emergency Provider Internal Medicine; PCP Family Medicine
DX: R10.31 Right lower quadrant pain (principal)
CPT/HCPCS: 36415; 74177; 80053; 81003; 82150; 84703; 85025; 99283; 99284; Q9967

== ENCOUNTER 2024-01-13 10:05 | Outpatient (CLI) | payer BC, SELFPAY ==
--- OUTSIDE RECORDS SUMMARY | 2024-01-13 10:07 | XMS_ITS | Continuity of Care Document ---
Author Name Unknown Organization [facility] Address [address] [place] [address] Phone Care Team Providers Care Sole Seamer Name Role Phone Les PACHECO, PhD, Rafael Unavailable Unavai lable Procedures Procedure Date Office/Outpatient Visit,[facility] 2018 Advance Directives Directive Yes / No Effective Date File Name No Information Encounters Encounter Description Practice Location Reason(s) For Visit Diagnoses Date Provider Providers Copied on Encounter Office/Outpati ent Visit,[facility], [address], [place], [id number], tel:[phone] [facility] - [place] Low back pain Les Hall. [facility], [address] [place] [address], [facility], [place]. tel:[phone] Referring Provider: Zulema Kelly, [address], [address]. tel:[phone] [facility], [address], [place], [id number], tel:[phone] [facility] - [facility] Low back pain Les Hall. [facility], [facility] [address] [place] [address], [address], [place]. tel:[phone] Family History Family Member Type Diagnosis Age At Onset No Information Payers Payer name Insurance type Covered alliance party ID Authoriza tion(s) No Information Social History Type Description Quantity Date Captured Comments Sex Female Smoking Status No Information Vital Signs Date / Time: Height Weight BMI Pulse Rate Blood Pressure Temperature Respiratory Rate Body Surface Area Head Circumference Head Circ. Percentile Wt./Don. Percentile BMI percentile Pulse Ox Inhaled Ox 4:06 PM 70.00 in 71.668 kg (158.00 lbs) 22.6 7 kg/m eter (2) Chief Complaint And Reason For Visit No Information Reason For Referral Reason For Referral No Information History Of Present Illness Encounter Date Complaint History Of Prese nt Illness No Information Functional Status Date Functional Assessmen t No Information Instructions Date Instruction Additional Infor mation No Information Assessments Type Assessment Date assessment Low back pain Patient Care Teams Name Effective Dates (start - stop) Status Members No Information
--- OUTSIDE RECORDS SUMMARY | 2024-01-13 10:08 | XMS_ITS | Clinical Summary ---
Author Name Unknown Organization [facility] Address [place], [place] [address] Care Team Providers Care Director Of Academic Support Name Role Phone Liliya Argueta DO Primary Care Provider [phone] Luigi Damon PhD, LP Unavailable [phone] Allergies No known active allergies Medications Medication Sig Dispensed Refills Start Date End Date Status cyanocobalamin (Vitamin B-12) 1,000 mcg tablet Take 1 Tablet (1,000 mcg) by mouth once daily. 90 Tablet 3 2 Active multivitamins-calc kdk-vaaq-eejlxgea (Multiple Vitamin, Womens) tab tablet Take 1 Tablet by mouth once daily. 0 2 Active citalopram (CELEXA) 10 mg tabletIndications: Anxiety state Take 1 Tablet (10 mg) by mouth every morning. 90 Tablet 3 3 Active cholecalciferol (Vitamin D) 1,000 unit capsule Take 1 Capsule (1,000 units) by mouth once daily. 0 3 Active ondansetron (ZOFRAN ODT) 4 mg disintegrating tabletIndications: Nausea Place 1 Tablet (4 mg) on the tongue every 8 hours if needed for Nausea/Vomitin g. 30 Tablet 3 Active LORazepam (ATIVAN) 0.5 mg tabIndications:Bobby sea,Abdominal pain, epigastric Take 1 Tablet (0.5 mg) by mouth once daily if needed for Anxiety. 4 Tablet 3 Active pantoprazole (PROTONIX) 40 mg delayed-release tabletIndications: Abdominal pain, generalized TAKE ONE TABLET BY MOUTH ONE TIME DAILY 90 Tablet 4 Active medication order composer flaxseed oil probiotic beet powder capsule DGL-fermented rose and willsoni Active tiZANidine (ZANAFLEX) 4 mg tabletIndications: Lumbar disc herniation with radiculopathy take 1 tablet by mouth up to 3 times daily. use mostly at night for muscle relaxer. may make you drowsy. 60 Tablet 4 Active methylphenidate (Concerta) 54 mg extended-release tabletIndications: ADHD, predominantly inattentive type Take 1 Tablet (54 mg) by mouth once daily. 30 Tablet 4 02/01/20 24 Active methylphenidate (Concerta) 54 mg extended-release tabletIndications: ADHD, predominantly inattentive type Take 1 Tablet (54 mg) by mouth once daily. 30 Tablet 4 03/02/20 24 Active methylphenidate (Concerta) 54 mg extended-release tabletIndications: ADHD, predominantly inattentive type Take 1 Tablet (54 mg) by mouth once daily. 30 Tablet 4 Active MAGNESIUM ORAL Take by mouth. Active methylphenidate (Concerta) 54 mg extended-release tabletIndications: ADHD, predominantly inattentive type Take 1 Tablet (54 mg) by mouth once daily. 30 Tablet 4 01/02/20 24 Discontinued(*Me d complete/Regimen complete/Level of care change) methylphenidate (Concerta) 54 mg extended-release tabletIndications: ADHD, predominantly inattentive type Take 1 Tablet (54 mg) by mouth once daily. 30 Tablet 4 01/02/20 24 Discontinued(*Me d complete/Regimen complete/Level of care change) tiZANidine (ZANAFLEX) 4 mg tabletIndications: Lumbar disc herniation with radiculopathy take 1 tablet by mouth up to 3 times daily. use mostly at night for muscle relaxer. may make you drowsy. 60 Tablet 4 12/25/19 24 Discontinued predniSONE (DELTASONE) 20 mg tabletIndications: Neck pain on left side,Left arm pain 2 tabs daily for 3 days, 1 tab daily for 3 days, and 1/2 tab daily for 4 days. 11 Tablet 4 01/05/20 24 Hospital, Clinic, or Other Facility Administered Medication Ordered Dose Route Frequency Start Date End Date Status levonorgestrel intrauterine device (MIRENA) 1 DeviceIndications:Uses contraception 1 Device IU Q 5 YEARS 01/10/2021 Active Active Problems Problem Noted Date Diagnosed Date Bee sting reaction 05/14/2023 Chronic alcohol abuse 05/14/2023 Substance abuse 05/14/2023 Alcoholic intoxication 05/14/2023 Lumbar disc herniation with radiculopathy 2022 Overview: Jun: L4-5 IL LOULOU with phenomenal relief of back and left leg symptoms. January 2021: L4-5 IL LOULOU with phenomenal relief of back and left leg symptoms. 10/08/2022: L4-5 IL LOULOU . 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 Abstinent since Encounters Date Type Department Care Team Description 01/09/2024 10:30 AM CDT Phone Office Visit [facility] [address] [place] [phone] Stacy Nichole, PhD, LP Individual Therapy 01/09/2024 Travel 01/02/2024 2:15 PM CDT Office Visit [facility] [address] [place] [address] Liliya Argueta, DO Physical (38 yr/); Referral (ENT referral- feels like pebble in between ear and jaw-affects eating); bone density (bone density testing-from history ) 01/01/2024 8:15 AM CDT Telemedicine [facility] [address] [place] [phone] Stacy Nichole, PhD, LP Individual Therapy 01/01/2024 Telephone [facility] [address] [place] [address] Liliya Argueta DO Pharmacist Medication Management (Methylphenidate ) 01/01/2024 Travel 12/25/2023 12:35 PM CDT Office Visit [facility] [address] [place] [address] Bashir Carlos MD Musculoskeletal Problem (Recheck chronic low back (LEFT) and LEFT Hip /Discuss getting updated MRI) 12/25/2023 Travel 12/24/2023 Refill [facility] [address] [place] [address] Liliya Argueta DO Refill Request (Tizanidine) 12/03/2023 5:30 PM CDT Telemedicine [facility] [address] [place] [phone] Stacy Nichole, PhD, LP Mental Health Intake; Trmt Plan 12/03/2023 Travel 11/05/2023 Refill [facility] [address] [place] [address] Liliya Argueta DO Refill Request (Tizanidine) 11/03/2023 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 Telemedicine [facility] [address] [place] [address] Liliya Argueta DO Medication Management (ADHD follow up/ discuss adjustment with dose/been sober for a year now- Would like to see Dayanara again/) 11/03/2023 Travel 10/22/2023 Refill [facility] [address] [place] [address] Liliya Argueta DO Refill Request (Methylphenidate Hcl) from Last 3 Months Immunizations Name Administration Dates Next Due Td (Age >=7 Years) 11/04/2018 Tdap 06/22/2008 Family History Medical History Relation Name Comments Hyperlipidemia Father Relation Name Status Comments Father Social History Tobacco Use Types Packs/Day Years Used Date Smoking Tobacco: Light Smoker Cigarettes Last attempted t o quit: 05/14/2019 Smokeless Tobacco: Never Tobacco Cessation:Ready to Q uit: No; Counseling Given: Yes Comments:4 cigs per day Alcohol Use Standard Drinks/Week Comments Not Currently 0 (1 standard drink = 0.6 oz pur e alcohol) been sober for over a year PHQ-2 Answer Date Recorded PHQ-2 TOTAL SCORE 0 01/02/2024 Social Connections Answer Date Recorded Frequency of Communication with Friends and Fami ly 0 05/16/2023 Financial Resource Strain Answer Date R ecorded Difficulty of Paying Living Expenses 3 05/16/2023 Difficulty of Paying Living Expenses Not on file 05/16/2023 Food Insecurity Answer Date Recorded Worried About Running Out of Food in the Last Ye ar 1 05/16/2023 Transportation Needs Answer Date Record ed Lack of Transportation (Medical) 1 05/16/2023 Housing Stability Answer Date Recorded Unable to Pay for Housing in the Last Year 1 05/16/2023 Sex and Gender Information Value Date Recorded Sex Assigned at Not on file Gender Identity Not on file Sexual Orientation Not on file Obstetrics History Last Filed Vital Signs Vital Sign Reading Time Taken Comments Blood Pressure 114/73 01/02/2024 2:24 PM CDT Pulse 84 01/02/2024 2:24 PM CDT Temperature 36.7 ??C (98 ??F) 01/02/2024 2:24 PM CDT Respiratory Rate 16 05/16/2023 2:03 PM CDT Oxygen Saturation 98% 01/02/2024 2:24 PM CDT Inhaled Oxygen Concentration - - Weight 60.8 kg (134 lb) 01/02/2024 2:24 PM CDT Height 179.2 cm (5' 10.55) 01/02/2024 2:24 PM C DT Body Mass Index 18.93 01/02/2024 2:24 PM CDT Plan of Treatment Upcoming Encounters Date Type Department Care Team (Late st Contact Info) Description 01/13/2024 10:40 AM CDT Office Visit [facility] [address] [place] [phone] eDan Gan MD [address] [place] [address] Arrived 01/14/2024 7:30 AM CDT Office Visit [facility] [address] [place] [phone] Stacy Nichole, PhD, LP [address] [place] [address] 01/15/2024 8:15 AM CDT Telemedicine [facility] [address] [place] [phone] Stacy Nichole, PhD, LP [address] [place] [address] 01/15/2024 1:00 PM CDT Ancillary Procedure [facility] [address] [place] [address] 02/06/2024 1:15 PM CDT Office Visit [facility] [address] [place] [phone] Lloyd Tatum MD [address] [place] [address] 02/09/2024 12:35 PM CDT Office Visit [facility] [address] [place] [facility] [place] [address] Bashir Carlos MD [address] [place] [address] Health Maintenance Due Date Last Done Comments Pneumococcal series for age 6-64 (1 of 2 - PCV) 1992 COVID-19 vaccine series (2022-24 season) 2024 Postponed from 05/02/2023 (Patient discretion) Influenza for age 9-49 05/02/2024 BMI (ht and wt on same day) for age 18+ 01/01/2025 01/02/2024, 09/03/2023, 05/08/2022, Additional history exists Depression screening for age 12+ 01/01/2025 01/02/2024, 01/01/2024, 01/01/2024, Additional history exists Tetanus booster 11/04/2028 11/04/2018, 06/02 (Completed outside of [facility]), 06/27/2008 ([facility] Additional history exists Pap test for age 21-65 01/01/2029 4, 11/04/2018, 11/04/2018, Additional history exists Tdap Completed 06/22/2008 Hepatitis C screening for age 18-79 Completed 05/08/2022 HIV for age 15-65 Completed 01/02/2024 Procedures Procedure Name Priority Date/Time Associated Diagnosis Comments AMB EPIDURAL STEROID INJECTION Routine 01/13/2024 8:01 AM CDT Lumbar disc herniation with radiculopathy BASIC METABOLIC PANEL Routine 01/02/2024 3:15 PM CDT Diabetes mellitus screening LIPID PANEL W REFLEX MEASURED LDL Routine 01/02/2024 3:15 PM CDT Lipid screening ANTI HIV 1/2 Routine 01/02/2024 3:15 PM CDT Screening for HIV (human immunodeficiency virus) HPV THIN PREP Routine 01/02/2024 2:30 PM CDT Screening for cervical cancer GC CHLAMYDIA TRACH PROBE Routine 01/02/2024 2:30 PM CDT Screen for STD (sexually transmitted disease) ANTI HCV Routine 05/08/2022 3:22 PM CDT Need for hepatitis C screening test from Last 3 Months or Most Recently Relevant to Health Maintenance Results * LIPID PANEL W REFLEX MEASURED LDL (01/02/2024 3:15 PM CDT) CHOLESTEROL,TOTAL 161 100 - 199 mg/dL 01/02/2024 10:16 PM CDT [facility] Comment: Cholesterol, Total Reference Ranges Desirable <200 mg/dL Borderline 200-239 mg/dL High >=240 mg/dL TRIGLYCERIDES 53 <150 mg/dL 01/02/2024 10:16 PM CDT [facility] HDL CHOLESTEROL 66 >40 mg/dL 10:16 PM CDT [facility] NON-HDL CHOLESTEROL 95 <145 mg/dl 01/02/2024 10:16 PM CDT [facility] CHOL/HDL RATIO 2.44 <4.50 01/02/2024 10:16 PM CDT [facility] LDL CHOLESTEROL 84 <=130 mg/dL 01/02/2024 10:16 PM CDT [facility] VLDL CHOLESTEROL 11 <=30 mg/dL 01/02/2024 10:16 PM CDT [facility] PROVIDER ORDERED STATUS RANDOM 01/02/2024 10:16 PM CDT [facility] Blood BLOOD SPECIMEN / Unknown Venipuncture / Unknown 01/02/2024 3:15 PM CDT 01/02/2024 3:15 PM CDT Liliya Argueta DO CHEMISTRY Performing Organization Address City/[facility]/ZIP Co de Phone Number [facility] [address] [place] [address], [place] * ANTI HIV 1/2 [21746.0] (01/02/2024 3:15 PM CDT) Pathologist [facility] HIV-1/HIV-2 SCREEN Non-Reacti ve Non-Reacti ve 01/02/2024 9:57 PM CDT [facility] Comment:HIV-1 p24 and HIV-1/ HIV-2 Ab Not Detected. Blood BLOOD SPECIMEN / Unknown Venipuncture / Unknown 01/02/2024 3:15 PM CDT 01/02/2024 3:15 PM CDT Liliya Argueta DO SEND OUTS Performing Organization Address City/[facility]/ZIP Co de Phone Number [facility] [address] [place] [address], [place] * (ABNORMAL) BASIC METABOLIC PANEL (01/02/2024 3:15 PM CDT) SODIUM 137 136 - 145 mmol/L 01/02/2024 10:16 PM CDT [facility] POTASSIUM 4.1 3.5 - 5.1 mmol/L 01/02/2024 10:16 PM CDT [facility] CHLORIDE 99 98 - 107 mmol/L 01/02/2024 10:16 PM CDT [facility] CO2,TOTAL 26 22 - 29 mmol/L 01/02/2024 10:16 PM T [facility] ANION GAP 12 5 - 18 01/02/2024 10:16 PM T [facility] GLUCOSE 113(H) 70 - 99 mg/dL 01/02/2024 10:16 PM CDT [facility] CALCIUM 10.0 8.6 - 10.0 mg/dL 01/02/2024 10:16 PM T [facility] BUN 11 6 - 20 mg/dL 01/02/2024 10:16 PM T [facility] CREATININE 0.73 0.50 - 0.90 mg/dL 01/02/2024 10:16 PM T [facility] BUN/CREAT RATIO 15 10 - 20 10:16 PM T [facility] eGFR >90 >90 mL/min/1.7 3m2 01/02/2024 10:16 PM T [facility] Comment:As of 2021, eG FR is calculated by the CKD-EPI creatinine equation without race adjustment. ??eGFR can be influenced by muscle mass, exercise, and diet. ??The reported eGFR is an estimation only and is only applicable if the renal function is stable. Blood BLOOD SPECIMEN / Unknown Venipuncture / Unknown 01/02/2024 3:15 PM CDT 01/02/2024 3:15 PM CDT Liliya Argueta DO CHEMISTRY [facility] [address] [place] [address], * GC & CHLAMYDIA DNA PCR [[id number]] (01/02/2024 2:30 PM CDT) CHLAMYDIA PROBE Negative 3:01 AM CDT [facility] N GONORRHOEAE PROBE Negative 01/03/2024 3:01 AM CDT [facility] Other ENDOCERVICAL CYTOLOGIC MATERIAL / Unknown Non-Blood / Unknown 01/02/2024 2:30 PM CDT 01/02/2024 3:08 PM CDT Liliya Argueta DO MICROBIOLOGY Performing Organization Address City/[facility]/ZIP Co de Phone Number [facility] [address] [place] [address], * HPV HIGH RISK (01/02/2024 2:30 PM CDT) TYPE 16 Negative Negative 01/07/2024 2:03 PM CDT [facility] TYPE 18 Negative Negative 01/07/2024 2:03 PM CDT [facility] OTHER HIGH RISK TYPES Negative Negative 01/07/2024 2:03 PM CDT [facility] Other (Cervical) Non-Blood / Unknown 01/02/2024 2:30 PM CDT 01/05/2024 1:46 PM CDT Narrative [facility] - 01/07/2024 2:03 PM CDT HPV types 16, 18, 31, 33, 35, 39, 45, 51, 52, 56, 58, 59, 66 and 68 DNA were undetectable or below the pre-set threshold. Methodology: Shalini Omar 4800 HPV Test Liliya Argueta DO MICROBIOLOGY Performing Organization Address City/[facility]/ZIP Co de Phone Number [facility] [address] [place] [address], [place] * ANTI HCV (05/08/2022 3:22 PM CDT) HEPATITIS C ANTIBODY Non-React charly Non-React charly 05/09/2022 4:44 PM CDT [facility] Comment:Antibodies to HCV no t detected; does not exclude the possibility of exposure to HCV. Blood BLOOD SPECIMEN / Unknown Venipuncture / Unknown 05/08/2022 3:22 PM CDT 05/08/2022 3:23 PM CDT Liliya Argueta DO SEND OUTS [facility] [address] [place] [address], from Last 3 Months or Most Recently Relevant to Health Maintenance Care Teams Director Of Academic Support Relationship Specialty Start Date End Date Liliya Argueta DO [address] [place] [address] PCP - General Family Practice 12/09/12 Luigi Damon, PhD, LP [address] [place] [address] Psychologist Psychology 12/09/12
== END 2024-01-13 10:06 | disposition home or self-care (01) ==
LOC: INJ CL 10:06
PROVIDERS: PCP Family Medicine; Visit Provider Family Medicine
DX: M54.16 Radiculopathy, lumbar region (principal); M51.36 Other intervertebral disc degeneration, lumbar region
CPT/HCPCS: 62323; J0702; Q9966

== ENCOUNTER 2024-03-07 11:28 | Emergency (ER) | payer BC, SELFPAY ==
[2024-03-07 11:34] VITALS: BP 119/79; PULSE 71; RESP 18; TEMP 36.6; O2SAT 100; BMI 19.4
--- NOTE | 2024-03-07 12:53 | ED.GENADULT ---
HPI - General Adult General Chief complaint: Ear/Nose/Throat Problem Stated complaint: jaw/face pain, radiating to chest Time Seen by Provider: 03/07/24 12:32 Source: patient Mode of arrival: ambulatory Limitations: no limitations History of Present Illness HPI narrative: 38-year-old female coming in today complaining of facial pain. About a week and half ago she had prep work done for crown placement. She states that about 1 week ago she started feeling pain over the right face. Pain is located across the right forehead cheek and jaw. The pain comes in waves and generally lasts a few seconds and she describes it as a stabbing pain like someone is sticking in ice pick into her right ear. She states that the longest the pain lasted about a minute and half. This happens multiple times during the day. Nothing seems to make it better or worse. She denies any fevers or chills. No nausea or vomiting. She denies significant headaches, dizziness, focal neurologic deficits. She denies any nausea or vomiting. She has been having a lot of bloating and increased burping going on for several months. She patient has been sober now for 19 months. She did have an ENT appointment about 4 days ago and she was started on prednisone for these symptoms. Her symptoms have not changed at all. Related Data Home Medications ?Medication ?Instructions ?Recorded ?Confirmed citalopram 20 mg tablet mg 03/13/22 10/06/23 methylphenidate HCl 36 mg mg PO 03/13/22 10/06/23 tablet,extended release 24 hr tizanidine 4 mg tablet mg 03/13/22 10/06/23 pantoprazole 40 mg tablet,delayed 40 mg PO DAILY 03/07/24 03/07/24 release prednisone 10 mg tablet 20 mg PO DAILY 03/07/24 03/07/24 Previous Rx's ?Medication ?Instructions ?Recorded carbamazepine 200 mg 100 mg (1/2 x 200 mg) PO BID #30 03/07/24 tablet,extended release,12 hr tabs Allergies Allergy/AdvReac Type Severity Reaction Status Date / Time No Known Drug Allergies Allergy Verified 10/06/23 15:44 Review of Systems Status of ROS: Reports: 10 or more systems reviewed and unremarkable except as noted in History and below PFSH PFSH Medical History Alcohol abuse ?F10.10 - Alcohol abuse, uncomplicated (ICD-10) Surgical History History of reduction of closed fracture (07/01/08) ?Z87.81 - Personal history of (healed) traumatic fracture (ICD-10) S/P ORIF (open reduction internal fixation) fracture (01/19/13) ?Z98.890 - Other specified postprocedural states (ICD-10) ?Z87.81 - Personal history of (healed) traumatic fracture (ICD-10) Social History Smoking Status: Current every day smoker What tobacco products do you use: cigarettes Smoking packs per day: 0.3 Smoking cigarettes per day: 6.0 Years smoked: 16 Smoking pack-years: 4.80 Do you use any of these nicotine containing products: None Second hand tobacco smoke exposure: No How often do you have a drink containing alcohol: 4 or more times a week How many standard drinks containing alcohol do you have on a typical day: 1 or 2 How often do you have six or more drinks on one occasion: Weekly AUDIT-C Alcohol total score: 7 Non-prescribed substance use: marijuana (any form) Non-prescribed substance use details: [facility] service: No Exam Narrative: Exam Narrative: Well-nourished well-developed patient in no acute distress. Alert and oriented. Answers questions appropriately. Mood and affect are appropriate. Thoughts are goal oriented and rational. No tangential or magical thinking noted. Patient speaks in full sentences without needing to catch her breath. HEENT: Normocephalic atraumatic. Pupils are equally round reactive to light. Extraocular muscles are intact. Conjunctivae are moist without any icterus noted. Moist mucous membranes. Posterior pharynx is normal. Neck is soft without any lymphadenopathy or thyromegaly. No masses are appreciated. TMs are clear bilaterally. She has no pain with palpation of the TMJ. She can open and close her mouth without difficulty, no pain. There is no swelling noted of the face. There is no asymmetry. No rashes are noted over the face or the scalp. Skin: Well perfused without any obvious rashes. Const: Vital Signs, click to edit/add: Vital Signs - 24 hr 03/07/24 11:34 Temperature 97.8 F Pulse Rate [Left P ulse Oximeter] 71 Respiratory Rate 18 Blood Pressure [Le ft Upper Arm] 119/79 Pulse Oximetry 100 Oxygen Delivery Me thod Room Air Course Vital Signs Vital signs: Initial Vital Signs Temperature 97.8 F 03/07/24 11:34 Temperature Source Temporal Artery Scan 03/07/24 11:34 Pulse Rate 71 03/07/24 11:34 Pulse Rhythm Regular 03/07/24 11:34 Pulse Strength 3+ Normal 03/07/24 11:34 Respiratory Rate 18 03/07/24 11:34 Blood Pressure 119/79 03/07/24 11:34 Blood Pressure Mean 92 03/07/24 11:34 Blood Pressure Position Sitting 03/07/24 11:34 Pulse Oximetry 100 03/07/24 11:34 Oxygen Delivery Method Room Air 03/07/24 11:34 Vital Signs Temperature 97.8 F 03/07/24 11:34 Pulse Rate 71 03/07/24 11:34 Respiratory Rate 18 03/07/24 11:34 Blood Pressure 119/79 03/07/24 11:34 Pulse Oximetry 100 03/07/24 11:34 Oxygen Delivery Method Room Air 03/07/24 11:34 Temperature 97.8 F 03/07/24 11:34 Pulse Rate 71 03/07/24 11:34 Respiratory Rate 18 03/07/24 11:34 Blood Pressure 119/79 03/07/24 11:34 Pulse Oximetry 100 03/07/24 11:34 Oxygen Delivery Method Room Air 03/07/24 11:34 Medical Decision Making MDM Narrative Medical decision making narrative: Does sound like patient is having classic symptoms of trigeminal neuralgia. Will start the patient on carbamazepine treatment. On her to follow-up with her primary care provider next week to discuss tapering up her dose as needed and imaging, as we do not have access to MRI today in the ER. Differential diagnosis considered includes herpes zoster, TMJ dysfunction, ear infection. Medical Records Medical records reviewed: Yes I reviewed the patient's medical records Discharge Plan Discharge Clinical Impression: Trigeminal neuralgia Patient Disposition: Home, Self-Care Condition: Stable Additional Instructions: It appears that you have a trigeminal neuralgia which is an inflammation of the nerve of the face. Usually the cause of this is unknown however you should have an MRI of your head done to make sure that there are no masses pinching that nerve. We do not have access to MRI in the emergency room today, therefore you need to follow-up with your primary care provider to discuss getting this imaging done. You will be placed on a medicine called carbamazepine. You will start the dose at 100 mg 2 times per day and this can be increased to 200 mg 2 times per day 4-5 days from now if needed. You can go as high as 400 mg 2 times per day, however I would like for you to speak with your primary care provider before increasing it above 200 mg 2 times per day. Prescriptions: New carbamazepine 200 mg tablet extended release 12 hr 100 mg PO BID Qty: 30 0RF Rx Instructions: Can increase to 1 full tablet 2 times per day after 4-5 days of use, if needed. No Action prednisone 10 mg tablet 20 mg PO DAILY pantoprazole 40 mg tablet,delayed release (DR/EC) 40 mg PO DAILY tizanidine 4 mg tablet citalopram 20 mg tablet methylphenidate HCl 36 mg tablet extended release 24hr PO Follow Up/Referrals: Liliya Argueta DO [Primary Care Provider] - Stand Alone Forms: [employer] Info Instructions
--- OUTSIDE RECORDS SUMMARY | 2024-03-07 12:59 | XMS_ITS | Continuity of Care Document ---
Author Organization [facility] Address [address] [place] [address] Phone Care Team Providers Care Medical Program Specialist Name Role Phone Les PACHECO, PhD, Rafael Unavailable Unavai lable Procedures Procedure Date Office/Outpatient Visit,[facility] 2018 Advance Directives Directive Yes / No Effective Date File Name No Information Encounters Encounter Description Practice Location Reason(s) For Visit Diagnoses Date Provider Providers Copied on Encounter Office/Outpati ent Visit,[facility], [address], [place], [id number], tel:[phone] [facility] Low back pain Les Hall. [facility] [place], [address] [place] [address], [facility], [place]. tel:[phone] Referring Provider: Zulema Kelly, [address], [address]. tel:[phone] [facility], [address], [place], [id number], tel:[phone] [facility] Low back pain Les Hall. [facility] [place], [address] [place] [address], [address], [place]. tel:[phone] Family History Family Member Type Diagnosis Age At Onset No Information Payers Payer name Insurance type Covered constitution party ID Authoriza tion(s) No Information Social [...]
--- OUTSIDE RECORDS SUMMARY | 2024-03-07 12:59 | XMS_ITS | Clinical Summary ---
Author Organization [facility] Address [place], [place] [address] Care Team Providers Care Plant Facilities Technician Name Role Phone Liliya Argueta DO Primary Care Provider [phone] Luigi Damon PhD, LP Unavailable [phone] Allergies No known active allergies Medications Medication Sig Dispensed Refills Start Date End Date Status cyanocobalamin (Vitamin B-12) 1,000 mcg tablet Take 1 Tablet (1,000 mcg) by mouth once daily. 90 Tablet 3 11/03/19 22 Active multivitamins-calcium -iron-minerals (Multiple Vitamin, Womens) tab tablet Take 1 Tablet by mouth once daily. 0 11/03/19 22 Active cholecalciferol (Vitamin D) 1,000 unit capsule Take 1 Capsule (1,000 units) by mouth once daily. 0 06/25/20 23 Active ondansetron (ZOFRAN ODT) 4 mg disintegrating tabletIndications:[facility] 1 Tablet (4 mg) on the tongue every 8 hours if needed for Nausea/Vomitin g. 30 Tablet 06/26/20 23 Active medication order composer flaxseed oil probiotic beet powder capsule DGL-fermented rose and willowbark Active MAGNESIUM ORAL Take by mouth. Active tiZANidine (ZANAFLEX) 4 mg tabletIndications:Lum bar disc herniation with radiculopathy take 1 tablet by mouth up to 3 times daily. use mostly at night for muscle relaxer. may make you drowsy. 60 Tablet 02/01/20 24 Active pantoprazole (PROTONIX) 40 mg delayed-release tabletIndications:Abd ominal pain, generalized Take 1 Tablet (40 mg) by mouth once daily. 90 Tablet 01/31/20 24 Active LORazepam (ATIVAN) 0.5 mg tabIndications:Situat ional anxiety Take 1 Tablet (0.5 mg) by mouth once daily if needed for Anxiety. 2 Tablet 02/23/20 24 Active citalopram (CELEXA) 10 mg tabletIndications:Anx iety state TAKE ONE TABLET BY MOUTH IN THE MORNING 90 Tablet 1 02/28/20 24 Active methylphenidate (Concerta) 54 mg extended-release tabletIndications:ADH D, predominantly inattentive type Take 1 Tablet (54 mg) by mouth once daily. 30 Tablet 03/03/20 24 Active predniSONE (DELTASONE) 10 mg tabletIndications:Art hralgia of right temporomandibular joint Take 2 Tablets (20 mg) by mouth once daily with a meal for 5 days. 10 Tablet 03/03/20 24 024 Active citalopram (CELEXA) 10 mg tabletIndications:Anx iety state Take 1 Tablet (10 mg) by mouth every morning. 90 Tablet 3 11/23/19 23 024 Discontinued LORazepam (ATIVAN) 0.5 mg tabIndications:Nausea ,Abdominal pain, epigastric Take 1 Tablet (0.5 mg) by mouth once daily if needed for Anxiety. 4 Tablet 06/26/20 23 024 Discontinued(Re order (E-cancel not sent)) methylphenidate (Concerta) 54 mg extended-release tabletIndications:ADH D, predominantly inattentive type Take 1 Tablet (54 mg) by mouth once daily. 30 Tablet 02/01/20 24 024 methylphenidate (Concerta) 54 mg extended-release tabletIndications:ADH D, predominantly inattentive type Take 1 Tablet (54 mg) by mouth once daily. 30 Tablet 03/02/20 24 024 Discontinued(Re order (E-cancel not sent)) Hospital, Clinic, or Other Facility Administered Medication Ordered Dose Route Frequency Start Date End Date Status levonorgestrel intrauterine device (MIRENA) 1 DeviceIndications:Uses contraception 1 Device IU Q 5 YEARS 01/10/2021 Active Active Problems Problem Noted Date Diagnosed Date Pap smear for cervical cancer screening 01/16/20 24 Overview: 12/2023 NIL/ HPV negative Plan: Pap/ HPV due 12/2028 Bee sting reaction 05/14/2023 Chronic alcohol abuse [...] gynecological examination 03/13/2015 Screening breast examination 03/13/2015 Anxiety state, unspecified 11/22/2011 Resolved Problems Problem Noted Date Diagnosed Date Resolved Date Chemical dependency 04/17/2022 06/26/20 Screening for cervical cancer 03/10/2015 01/16/2024 Depression with anxiety 11/24/200910/31 Alcoholism 11/06/2009 01/18/2013 Overview: Treatment-2008. Abstinent since Encounters Date Type Department Care Team Description 03/07/2024 Nurse Triage [facility] [address] [place] [address] Liliya Argueta DO Chest Pain 03/03/2024 4:00 PM CDT Office Visit [facility] [id number] [place] [phone] Laila Lutz PA Throat Problem (Right throat issues, swallowing and feels like something stuck. Right face pressure and ear issues. ) 03/03/2024 Travel 03/02/2024 Telephone [facility] [address] [place] [address] Liliya Argueta DO Pharmacist Medication Management (pharmacy clarification ) 02/26/2024 Refill [facility] [address] [place] [address] Liliya Argueta DO Refill Request (Citalopram) 02/26/2024 Telephone [facility] [address] [place] [address] Stacy Nichole, PhD, LP ANISHA letter (Emotional Support Animal) 02/23/2024 2:25 PM CDT Office Visit [facility] [address] [place] [address] Laila Cole PA Dental Services (medication to help with 2 dental crowns- 02/25 ) 02/23/2024 Travel 02/19/2024 8:15 AM CDT Phone Office Visit [facility] [address] [place] [address] Stacy Nichole, PhD, LP Failed Appointment 02/19/2024 Travel 02/10/2024 Telephone [facility] [address] [place] [address] Liliya Argueta DO Results 02/02/2024 Telephone [facility] [address] [place] [address] Liliya Argueta DO Results (bone density scan ) 02/01/[address] [address] Liliya Argueta DO Refill Request (Tizanidine) 01/29/2024 Refill [facility] [address] [place] [address] Liliya Argueta DO Refill Request (Tizanidine, Pantoprazole) 01/22/2024 1:00 PM CDT Ancillary Procedure [facility] [address] [place] [address] 01/22/2024 Travel 01/21/2024 Telephone [facility] [address] [place] [phone] Stacy Nichole, PhD, LP Late Cancel Appointment (01/21/2024) 01/15/2024 8:15 AM CDT Phone Office Visit [place] [address] [place] [address] Stacy Nichole, PhD, LP Phone Visit 01/15/2024 Travel 01/14/2024 7:30 AM CDT Office Visit [facility] [address] [place] [address] Stacy Nichole, PhD, LP Individual Therapy 01/13/2024 10:40 AM CDT Office Visit [facility] at [address] [address] Dean Gan MD Procedure (L4-5 ILESI) 01/13/2024 Orders Only [facility] Scanner 1 scan: (1-Ord) [facility], INJ L4-5 , 01/13/2024 01/09/2024 10:30 AM CDT Phone Office Visit [facility] [address] [place] [address] Stacy Nichole, PhD, LP Individual Therapy 01/09/2024 Travel 01/02/2024 2:15 PM CDT Office Visit [facility] [address] [place] [address] Liliya Argueta DO Physical (38 yr/); Referral (ENT referral- feels like pebble in between ear and jaw-affects eating); bone density (bone density testing-from history ) 01/01/2024 8:15 AM CDT Telemedicine [facility] [address] [place] [address] Stacy Nichole, PhD, LP Individual Therapy 01/01/2024 Telephone [facility] [address] [place] [address] Liliya Argueta DO Pharmacist Medication Management (Methylphenidate ) 01/01/2024 Travel 12/25/2023 12:35 PM CDT Office Visit [facility] [address] [place] [address] Bashir Carlos MD Musculoskeletal Problem (Recheck chronic low back (LEFT) and LEFT Hip /Discuss getting updated MRI) 12/25/2023 Travel 12/24/2023 Refill [facility] [address] [place] [address] Liliya Argueta DO Refill Request (Tizanidine) from Last 3 Months Immunizations Name Administration [...] Sign Reading Time Taken Comments Blood Pressure 97/63 02/23/2024 2:32 PM CDT Pulse 78 02/23/2024 2:32 PM CDT Temperature 36.7 ??C (98 ??F) 01/02/2024 2:24 PM CDT Respiratory Rate 16 05/16/2023 2:03 PM CDT Oxygen Saturation 99% 02/23/2024 2:32 PM CDT Inhaled Oxygen Concentration - - Weight 63 kg (138 lb 12.8 oz) 02/23/2024 2:32 PM CDT Height 179.2 cm (5' 10.55) 01/02/2024 2:24 PM C DT Body Mass Index 19.61 01/02/2024 2:24 PM CDT Plan of Treatment Upcoming Encounters Date Type Department Care Team (Late st Contact Info) Description 03/08/2024 2:30 PM CDT Office Visit [facility] [address] [facility] [phone] Stacy Nichole, PhD, LP [address] [place] [address] 03/19/2024 1:25 PM CDT Office Visit [facility] [address] [place] [address] Bashir Carlos MD [address] [place] [address] Health Maintenance Due Date Last Done Comments Pneumococcal series for age 6-64 (1 of 2 - PCV) 1992 COVID-19 vaccine series ( - 2022-24 season) 2024 Postponed from 05/02/2023 (Patient discretion) Influenza for age 9-49 05/02/2024 BMI (ht and wt on same day) for age 18+ 01/01/2025 01/02/2024, 09/03/2023, 05/08/2022, Additional history exists Depression screening for age 12+ 01/01/2025 01/02/2024, 01/01/2024, 01/01/2024, Additional history exists Tetanus booster 11/04/2028 11/04/2018, 06/02 (Completed outside of [facility]), 06/27/2008 (Completed outside of [facility]), Additional history exists Pap test for age 21-65 01/01/2029 , 01/02/2024, 11/04/2018, Additional history exists Tdap Completed 06/22/2008 Hepatitis C screening for age 18-79 Completed 05/08/2022 HIV for age 15-65 Completed 01/02/2024 Procedures Procedure Name Priority Date/Time Associated Diagnosis Comments XR DXA BONE DENSITY 2 SITES AXIAL Routine 01/22/2024 1:44 PM CDT Alcohol use disorder in remission AMB EPIDURAL STEROID INJECTION Routine 01/13/2024 8:01 AM CDT Lumbar disc herniation with radiculopathy SCAN-OPERATIVE/HI OCEDURE REPORT 01/13/2024 12:00 AM CDT BASIC METABOLIC PANEL Routine 01/02/2024 3:15 PM CDT Diabetes mellitus screening LIPID PANEL W REFLEX MEASURED LDL Routine 01/02/2024 3:15 PM CDT Lipid screening ANTI HIV 1/2 Routine 01/02/2024 3:15 PM CDT Screening for HIV (human immunodeficiency virus) SPAR MACHINE OPERATOR THIN PREP PAP SCREEN IMAGED Routine 01/02/2024 2:30 PM CDT Screening for cervical cancer HPV THIN PREP Routine 01/02/2024 2:30 PM CDT Screening for cervical cancer GC CHLAMYDIA TRACH PROBE Routine 01/02/2024 2:30 PM CDT Screen for STD (sexually transmitted disease) ANTI HCV Routine 05/08/2022 3:22 PM CDT Need for hepatitis C screening test from Last 3 Months or Most Recently Relevant to Health Maintenance Results * XR DXA BONE DENSITY 2 SITES AXIAL (01/22/2024 1:44 PM CDT) Anatomical Region Laterality Modality Spine, HIPS, HIPL, HIPR Other Impressions 01/30/2024 4:39 PM CDT Expected bone mass for age. (Z-score > -2 for premenopausal women, and for men under the age of 50). RECOMMENDATIONS: The National Osteoporosis Foundation recommends pharmacologic treatment for patients with T-scores of -2.5 or less, patients with prior history of fragility fractures, or patients with 10-year probability of greater than 3% at hips or greater than 20% of suffering major osteoporotic fractures. Recommend continued optimization of calcium and vitamin D intake through dietary means and/or supplementation and regular exercise. Repeat scan recommended as needed. Tere Su PA-C [facility] 01/30/2024 ?? Narrative 01/30/2024 4:39 PM CDT For Patients: Results are automatically released to your [facility] ([employer]) account once available, in compliance with federal regulations. This means that you may see your results before your provider has had a chance to review them. Please allow 2-3 business days for your provider to comment on the results. XR DXA Bone Mineral Density (BMD) EXAM LOCATION: [facility] [address] [facility] [address] PATIENT NAME: Ele Pompa DATE OF : 1985 EXAM DATE: 01/22/2024 REQUESTING PROVIDER: Liliya Argueta DO GENDER AT : female HEIGHT: 5' 10.55 (01/02/2024) WEIGHT: ??134 lb (01/02/2024) MENOPAUSAL STATUS: Premenopausal RACE/ETHNICITY: White RISK FACTORS: Alcohol > 3 drinks/day (prior), Eating Disorder, History of Fragility Fracture (at a major site), Smoking (current), Smoking (prior), and White Race CURRENT MEDICATION FOR BONE LOSS: NONE INDICATION: Alcohol use disorder in remission COMPARISON DATE(S): None DXA scans are compared to prior studies for a patient only when the two (or more) studies were performed on the same scanner. It is not possible to compare data generated on one scanner to data from another because there are not standards in DXA equipment. This applies even if the two scanners are made by the same chief financial officer. PROCEDURE: Dual-energy x-ray absorptiometry performed with routine technique. Reporting is completed in the form of a T-score. The T-score represents the standard deviation from peak bone mass based on young healthy adult. A Z-score is used for diagnosis in premenopausal women, and for men under the age of 50. FINDINGS: RESULT LUMBAR SPINE L1 - L4 BMD: 1.156 g/cm2 T-Score: - 0.3 Z-Score: - 0.2 Change from prior: ??None RESULTS FEMUR Left femoral neck BMD: 0.885 g/cm2 T-Score: - 1.1 Z-Score: - 0.7 Change from prior: ??None Right femoral neck BMD: 0.851 g/cm2 T-Score: - 1.3 Z-Score: - 0.9 Change from prior: ??None Left hip BMD: 0.809 g/cm2 T-Score: - 1.6 Z-Score: - 1.3 Change from prior: ??None Right hip BMD: 0.795 g/cm2 T-Score: - 1.7 Z-Score: - 1.4 Change from prior: ??None WHO criteria: Normal: T-score at or above -1 SD Osteopenia: T-score between -1.1 and -2.4 SD Osteoporosis: T-score at or below -2.5 SD Liliya Argueta DO DEXA * SCAN-OPERATIVE/PROCEDURE REPORT (01/13/2024 12:00 AM CDT) Scanner OTHER * LIPID PANEL W REFLEX MEASURED LDL (01/02/2024 3:15 PM CDT) Pathologist [facility] CHOLESTEROL,TOTAL 161 100 - 199 mg/dL 01/02/2024 10:16 PM CDT [facility] Comment: Cholesterol, Total Reference Ranges Desirable <200 mg/dL Borderline 200-239 mg/dL High >=240 mg/dL TRIGLYCERIDES 53 <150 mg/dL 01/02/2024 10:16 PM CDT [facility] HDL CHOLESTEROL 66 >40 mg/dL 10:16 PM CDT [facility] NON-HDL CHOLESTEROL 95 <145 mg/dl 01/02/2024 10:16 PM CDT [facility] CHOL/HDL RATIO 2.44 <4.50 01/02/2024 10:16 PM CDT [facility] LDL CHOLESTEROL 84 <=130 mg/dL 01/02/2024 10:16 PM CDT [facility] VLDL CHOLESTEROL 11 <=30 mg/dL 01/02/2024 10:16 PM CDT [facility] PROVIDER ORDERED STATUS RANDOM 01/02/2024 10:16 PM CDT [facility] Blood BLOOD SPECIMEN / Unknown Venipuncture / Unknown 01/02/2024 3:15 PM CDT 01/02/2024 3:15 PM CDT Liliya Argueta DO CHEMISTRY Performing Organization Address [facility] Co de Phone Number [facility] [address] [place] [address], * ANTI HIV 1/2 [77407.0] (01/02/2024 3:15 PM CDT) HIV-1/HIV-2 SCREEN Non-Reacti ve Non-Reacti ve 01/02/2024 9:57 PM CDT [facility] Comment:HIV-1 p24 and HIV-1/ HIV-2 Ab Not Detected. Blood BLOOD SPECIMEN / Unknown Venipuncture / Unknown 01/02/2024 3:15 PM CDT 01/02/2024 3:15 PM CDT Liliya Argueta DO SEND OUTS Performing Organization Address [facility] Co de Phone Number [facility] [address] [place] [address], * (ABNORMAL) BASIC METABOLIC PANEL (01/02/2024 3:15 PM CDT) SODIUM 137 136 - 145 mmol/L 01/02/2024 10:16 PM CDT [facility] POTASSIUM 4.1 3.5 - 5.1 mmol/L 01/02/2024 10:16 PM CDT [facility] CHLORIDE 99 98 - 107 mmol/L 01/02/2024 10:16 PM CDT [facility] CO2,TOTAL 26 22 - 29 mmol/L 01/02/2024 10:16 PM CDT [facility] ANION GAP 12 5 - 18 01/02/2024 10:16 PM CDT [facility] GLUCOSE 113(H) 70 - 99 mg/dL 01/02/2024 10:16 PM CDT [facility] CALCIUM 10.0 8.6 - 10.0 mg/dL 01/02/2024 10:16 PM CDT [facility] BUN 11 6 - 20 mg/dL 01/02/2024 10:16 PM CDT [facility] CREATININE 0.73 0.50 - 0.90 mg/dL 01/02/2024 10:16 PM CDT [facility] BUN/CREAT RATIO 15 10 - 20 10:16 PM CDT [facility] eGFR >90 >90 mL/min/1.7 3m2 01/02/2024 10:16 PM CDT [facility] Comment:As of 2021, eG FR [...] 3:15 PM CDT Liliya Argueta DO CHEMISTRY [facility] [address] [place] [address], * SPAR MACHINE OPERATOR THIN PREP PAP SCREEN IMAGED [[id number]] (01/02/2024 2:30 PM CDT) Case Report Gynecologic Cytology Report ? Case: [id number] ? Authorizing Provider: ??Liliya Argueta, DO ? Collected: ? 01/02/2024 1430 ? Ordering Location: ? [facility] ?? Received: ?01/02/2024 1508 ? Clinic ? First Screen: ?Mildred French ? Specimen: ?SPAR MACHINE OPERATOR ThinPrep Vial Screening, Cervical ? 01/16/2024 10:10 AM CDT [facility] INTERPRETATION/ RESULT NEGATIVE FOR INTRAEPITHELIAL LESION OR MALIGNANCY (NIL) (none) 01/16/2024 10:10 AM CDT [facility] IMEN ADEQUACY Satisfactory for evaluation No endocervical component seen 01/16/2024 10:10 AM CDT [facility] HPV REQUEST HPV and PAP 01/16/2024 10:10 AM CDT [facility] Date of LMP NA 01/16/2024 10:10 AM CDT [facility] Last Pap Date 11/04/18 01/16/2024 10:10 AM CDT [facility] Last Pap Result NIL 10:10 AM CDT [facility] Abnormal Pap or Pegram Bx in last 5 years No 01/16/2024 10:10 AM CDT [facility] Menstrual Status Hormonally Suppressed 01/16/2024 10:10 AM CDT [facility] Pegram Bx Done Today No 01/16/2024 10:10 AM CDT [facility] Additional Information None given 01/16/2024 10:10 AM CDT [facility] Comment: Cytology is screened at [facility] - [address], [place] [address] and [facility] - [address], [place] [address] and [facility] - [address] [place] [address] Interpreted at [facility] - [address] [facility] [place] [address] Automated Review Successful 01/16/2024 10:10 AM CDT [facility] Comment:Specimen processed s uccessfully by automated tax technician device, ThinPrep Imaging System, [employer] ANCILLARY TESTING SPAR MACHINE OPERATOR HPV Ordered, Please see separate report 01/16/2024 10:10 AM CDT [facility] Note The pap test is a screening technique, not a diagnostic procedure. It is used primarily to screen for squamous cancers and precursor lesions. Published studies have shown that it is subject to both false negative and false positive results. The pap test should not be used as the sole means to diagnose or exclude pre-malignant and malignant lesions. 01/16/2024 10:10 AM CDT [facility] Other (Cervical) Non-Blood / Unknown 01/02/2024 2:30 PM CDT 01/02/2024 3:08 PM CDT Liliya Argueta DO PATHOLOGY/CYTOLOGY [facility] [address] [place] [address], [place] * GC & CHLAMYDIA DNA PCR [[id number]] (01/02/2024 2:30 PM CDT) CHLAMYDIA PROBE Negative 3:01 AM CDT [facility] N GONORRHOEAE PROBE Negative 01/03/2024 3:01 AM CDT [facility] Other ENDOCERVICAL CYTOLOGIC MATERIAL / Unknown Non-Blood / Unknown 01/02/2024 2:30 PM CDT 01/02/2024 3:08 PM CDT Liliya Perez Ellie DO MICROBIOLOGY [facility] [address] [place] [address], * HPV HIGH RISK (01/02/2024 2:30 PM CDT) TYPE 16 Negative Negative 01/07/2024 2:03 PM CDT [facility] TYPE 18 Negative Negative 01/07/2024 2:03 PM CDT [facility] OTHER HIGH RISK TYPES Negative Negative 01/07/2024 2:03 PM CDT [facility] Other (Cervical) Non-Blood / Unknown 01/02/2024 2:30 PM CDT 01/05/2024 1:46 PM CDT Narrative [facility] - 01/07/2024 2:03 PM CDT HPV types 16, 18, 31, 33, 35, 39, 45, 51, 52, 56, 58, 59, 66 and 68 DNA were undetectable or below the pre-set threshold. Methodology: Shalini Omar 4800 HPV Test Liliya Ana Argueta DO MICROBIOLOGY Performing Organization Address City/[facility]/ZIP Co de Phone Number [facility] [address] [place] [address], * ANTI HCV (05/08/2022 3:22 PM CDT) HEPATITIS C ANTIBODY Non-React charly Non-React charly 05/09/2022 4:44 PM CDT [facility] Comment:Antibodies to HCV no t detected; does not exclude the possibility of exposure to HCV. Blood BLOOD SPECIMEN / Unknown Venipuncture / Unknown 05/08/2022 3:22 PM CDT 05/08/2022 3:23 PM CDT Liliya Argueta DO SEND OUTS [facility] [address] [place] [address], from Last 3 Months or Most Recently Relevant to Health Maintenance Care Teams Plant Facilities Technician Relationship Specialty Start Date End Date Liliya Argueta DO [address] [place] [address] PCP - General Family Practice 12/09/12 Luigi Damon, PhD, LP [address] [facility] [facility] [place], [place] [id number] Psychologist Psychology 12/09/12
== END 2024-03-07 13:10 | disposition home or self-care (01) ==
LOC: ED 12:57
PROVIDERS: Emergency Provider Family Medicine; PCP Family Medicine
DX: G50.0 Trigeminal neuralgia (principal)
CPT/HCPCS: 99283; 99284

== ENCOUNTER 2024-11-16 09:55 | Outpatient (CLI) | payer BC, SELFPAY | END 2024-11-16 09:56 | disposition home or self-care (01) | LOC: INJ CL 09:55 | PROVIDERS: PCP Family Medicine; Visit Provider Family Medicine | DX: M54.16 Radiculopathy, lumbar region (principal) | CPT/HCPCS: 64483; J1100; Q9966 ==

== ENCOUNTER 2025-07-26 11:00 | Outpatient (CLI) | payer BC, SELFPAY | END 2025-07-26 11:01 | disposition home or self-care (01) | LOC: INJ CL 11:01 | PROVIDERS: PCP Family Medicine; Visit Provider Family Medicine | DX: M54.16 Radiculopathy, lumbar region (principal); M51.369 Other intervertebral disc degeneration, lumbar region without mention of lumbar back pain or lower extremity pain | CPT/HCPCS: 64483; Q9966 ==